=== PATIENT | male | born 1955 | race Caucasian/White ===

== ENCOUNTER 2021-12-01 05:07 | Emergency (ER) | payer OTHER ==
[2021-12-01] MEDS ORDERED: MORPHINE 4 MG/ML SYR ONE (05:44)
[2021-12-01 06:04] LABS: Absolute Lymphocytes (CBC) 1.8 K/uL (0.7-4.9); Hematocrit 41.5 % (39.6-49.0); Lymphocytes % 19.3 % (15.3-44.8); MCV 88.9 fL (80-100); MPV 8.2 fL (7.6-11.3); RBC Red Blood Cell Count 4.67 M/uL (4.33-5.43)
[2021-12-01 06:14] LABS: Albumin 3.4 g/dL (3.4-5.0); Bilirubin Total 0.3 mg/dL (0.2-1.0); Potassium 4.1 mmol/L (3.5-5.1); Protein, Total 7.8 g/dL (6.4-8.2)
[2021-12-01 06:28] LABS: Protime INR 0.98
--- NOTE | 2021-12-01 06:32 | ER ---
Nurse's Notes [facility] Name: Zachary Driscoll Age: 66 yrs Sex: Male : 1955 Arrival Date: 12/01/2021 Time: 05:19 Bed 3 Private MD: Diagnosis: Laceration without foreign body of left hand, initial encounter-With arterial bleeding and muscle involvement Presentation: 12/01 05:20 Chief complaint: Patient states: Large laceration to left hand from sheet metal. lp1 Coronavirus screen: At this time, the client does not indicate any symptoms associated with coronavirus-19. Ebola Screen: No symptoms or risks identified at this time. Complicating Factors: There are no complicating factors for this patient. Initial Sepsis Screen: Does the patient meet any 2 criteria? No. Patient's initial sepsis screen is negative. Does the patient have a suspected source of infection? No. Patient's initial sepsis screen is negative. Risk Assessment: Do you want to hurt yourself or someone else? Patient reports no desire to harm self or others. Onset of symptoms was December 01, 2021. 05:20 Method Of Arrival: Wheelchair lp1 05:20 Care prior to arrival: None. Mechanism of Injury: Laceration sustained while working, lp1 from Sheet Metal. Trauma event details: Injury occurred in the [facility], Injury occurred: at home. Injury occurred: November 30, 2021 Injury occurred at: 19:00. 05:26 Acuity: VERNON 1 kd3 Triage Assessment: 05:20 General: Appears distressed, Behavior is restless. Pain: Complains of pain in left hand lp1 Pain currently is 10 out of 10 on a pain scale. Noted to be grimacing, guarding, restless. Neuro: Level of Consciousness is awake, alert, obeys commands. Respiratory: Respiratory effort is even, unlabored. Derm: Wound noted left hand. Musculoskeletal: Range of motion: limited in left wrist. 05:20 Injury Description: Laceration sustained to palmar aspect of proximal phalanx of left lp1 little finger, palmar aspect of proximal phalanx of left ring finger and inner aspect of left palm is jagged, > 20 cm long, bleeding profusely. Trauma Activation: Physician: ED Physician; Name: leo; Notified At: ; Arrived At: Physician: General Surgeon; Name: ; Notified At: ; Arrived At: Physician: Radiology; Name: ; Notified At: ; Arrived At: Physician: Respiratory; Name: ; Notified At: ; Arrived At: Physician: Lab; Name: ; Notified At: ; Arrived At: Historical: - Allergies: 05:45 No Known Allergies; kd3 - Home Meds: 05:45 hydrocodone [Active]; kd3 - PMHx: 05:45 None; kd3 - PSHx: 05:45 Rotator Cuff repair; kd3 - Immunization history:: Adult Immunizations up to date. - Social history:: Smoking status: Patient reports the use of cigarette tobacco products, smokes one pack cigarettes per day. - Immunization history: Last tetanus immunization: unknown. - Family history:: not pertinent. - Hospitalizations: : No recent hospitalization is reported. Screenin:57 Abuse screen: Denies threats or abuse. Denies injuries from another. Nutritional lp1 screening: No deficits noted. Tuberculosis screening: No symptoms or risk factors identified. Fall Risk None identified. Primary Survey: 05:20 Uncontrolled hemorrhage is observed, assessment has been re-ordered to <C> ABC. A: The lp1 client is awake and alert. The airway is patent. Breathing/Chest: Respiratory effort: spontaneous, unlabored, Respiratory pattern: regular. Circulation: Hemorrhage: External hemorrhage noted. Large laceration with active bleeding to left hand Skin color: pale. Disability Client is alert. Exposure/Environment: There is evidence of uncontrolled external hemorrhage. Provider notified immediately. Methods to control bleeding applied. 07:18 Reassessment Breathing: Spontaneous respiratory effort, equal unlabored respirations, kd3 breath sounds clear bilaterally, regular pattern with symmetrical chest rise and fall. 07:19 Reassessment Alertness and Airway: Awake and alert. The airway is patent. kd3 Secondary Survey: 07:19 HEENT: No deficits noted. Gastrointestinal: No deficits noted. : No deficits noted. kd3 Musculoskeletal: No deficits noted. Injury Description: Laceration sustained to inner aspect of left palm and palmar aspect of proximal phalanx of left ring finger and palmar aspect of proximal phalanx of left little finger. Assessment: 05:20 Reassessment: Dr. Ricardo at bedside for suture repair; Tourniquet applied to left arm. lp1 Vital Signs: 05:20 BP 100 / 78; Pulse 92; Resp 20; Temp 98(TE); Pulse Ox 100% on R/A; Weight 90.72 kg (R); lp1 Height 6 ft. 2 in. (187.96 cm); Pain 10/10; 07:19 BP 112 / 82; Pulse 91; Resp 16; Pulse Ox 100% on R/A; kd3 05:20 Body Mass Index 25.68 (90.72 kg, 187.96 cm) lp1 Ken Coma Score: 05:20 Eye Response: spontaneous(4). Verbal Response: oriented(5). Motor Response: obeys lp1 commands(6). Total: 15. Trauma Score (Adult): 05:20 Eye Response: spontaneous(1); Verbal Response: oriented(1); Motor Response: obeys lp1 commands(2); Systolic BP: > 89 mm Hg(4); Respiratory Rate: 10 to 29 per min(4); Andreas Score: 15; Trauma Score: 12 ED Course: 05:15 Arm band placed on right wrist. lp1 05:19 Patient arrived in ED. mw2 05:20 Hiram Ricardo MD is Attending Physician. rn 05:20 Inserted saline lock: 18 gauge in right forearm, using aseptic technique. lp1 05:26 Triage completed. kd3 05:30 Patient has correct armband on for positive identification. Bed in low position. lp1 05:30 Patient maintains SpO2 saturation greater than 95% on room air. lp1 06:11 initiated a transfer with Anabella Montague from [facility]. mw2 06:[address] Ricardo with the Hand Surgeon from [facility]. mw2 06:21 administrative approval given by Anabella Montague/ patient has been accepted to [address] to the ER/ Dr. Soto accepted the patient in transfer/report to be called to [phone]. 06:26 Adriana Hopson, RADHA is Primary Nurse. kd3 07:15 No provider procedures requiring assistance completed. Inserted saline lock: 20 gauge kd3 in right hand, using aseptic technique. 07:18 Patient transferred, IV remains in place. kd3 07:19 Thermoregulation: warm blanket given to patient. kd3 Administered Medications: 05:27 Drug: Lidocaine (1 %) 1 vials Volume: 20 ml; Route: Infiltration; kd3 07:20 Follow up: Response: No adverse reaction kd3 05:38 Drug: morphine 4 mg Route: IVP; Infused Over: 4 mins; Site: right forearm; kd3 06:43 Follow up: Response: No adverse reaction lp1 07:20 Follow up: Response: No adverse reaction kd3 06:43 Drug: Ancef (cefazolin) 1 grams Route: IVPB; Site: right forearm; lp1 07:12 Follow up: Response: No adverse reaction; IV Status: Completed infusion kd3 07:20 Follow up: Response: No adverse reaction kd3 07:11 Drug: fentaNYL (PF) 50 mcg Route: IVP; Site: right hand; kd3 07:20 Follow up: Response: No adverse reaction kd3 07:13 Drug: Tetanus Toxoid,Adsorbed 0.5 ml {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 Exp: 08/20/2023. Lot kd3 #: [id number]. } Route: IM; Site: right deltoid; 07:20 Follow up: Response: No adverse reaction kd3 Medication: 05:51 VIS not applicable for this client. lp1 Intake: 07:18 PO: 0ml; Total: 0ml. kd3 Outcome: 06:31 ER care complete, transfer ordered by . rn 07:18 Transferred by ground EMS to [facility]. kd3 07:18 Condition: stable 07:18 Patient's length of stay was not longer than 2 hours. 07:20 Patient left the ED. kd3 Signatures: Hiram Ricardo MD MD rn Pena, Laura, RN RN lp1 Kat Christian 2 Adriana Hopson RN RN kd3 Corrections: (The following items were deleted from the chart) 05:46 05:45 Home Meds: None; kd3 kd3 05:58 05:20 Chief complaint: Patient states: Large laceration to right hand from sheet metal lp1 lp1 06:11 05:20 BP 100 / 78; Pulse 92bpm; Resp 20bpm; Pulse Ox 100% RA; 90.72 kg Reported; Height lp1 6 ft. 2 in.; BMI: 25.6; Pain 10/10; lp1
--- NOTE | 2021-12-01 06:32 | EDPHYS ---
Physician Documentation [facility] Name: Zachary Driscoll Age: 66 yrs Sex: Male : 1955 Arrival Date: 12/01/2021 Time: 05:19 Bed 3 Private MD: ED Physician Hiram Ricardo HPI: 12/01 06:24 This 66 yrs old Male presents to ER via Wheelchair with complaints of Laceration To rn Hand. 06:24 The patient has a laceration related to: construction occurred outdoors. The rn laceration(s) is(are) located on the 4th/5th webspace left hand. Onset: The symptoms/episode began/occurred 10 hour(s) ago. Associated signs and symptoms: Pertinent positives: heavy bleeding, Pertinent negatives: loss of consciousness. The patient has not experienced similar symptoms in the past. The patient has not recently seen a physician. Pt reports working with sheet metal last night, slid off roof, sheet metal caught left hand between 4th/5th digits, packed it with toilet paper and stopped bleeding, went to sleep and woke up with blood "all around". Denies syncope. No sob. No anticoagulants. . Historical: - Allergies: 05:45 No Known Allergies; kd3 - Home Meds: 05:45 hydrocodone [Active]; kd3 - PMHx: 05:45 None; kd3 - PSHx: 05:45 Rotator Cuff repair; kd3 - Immunization history:: Adult Immunizations up to date. - Social history:: Smoking status: Patient reports the use of cigarette tobacco products, smokes one pack cigarettes per day. - Immunization history: Last tetanus immunization: unknown. - Family history:: not pertinent. - Hospitalizations: : No recent hospitalization is reported. ROS: 06:24 Constitutional: Negative for fever, chills, and weight loss, Cardiovascular: Negative rn for chest pain, palpitations, and edema, Respiratory: Negative for shortness of breath, cough, wheezing, and pleuritic chest pain, MS/Extremity: + laceration to left hand Neuro: + tingling to left hand, 4th/5th digits Exam: 06:24 Constitutional: This is a well developed, well nourished patient who is awake, alert, rn holding left hand in bag MS/ Extremity: Pulses equal, no cyanosis. UNable to fully flex left 4th/5th digits, approx 5cm deep laceration from webspace between 4th/5th digits that extends toward palm. No foreign body. + 2 locations of arteriole bleeding. + muscle belly exposed and transected Neuro: Decreased sensation to tips of 4th/5th digits of left hand Vital Signs: 05:20 BP 100 / 78; Pulse 92; Resp 20; Temp 98(TE); Pulse Ox 100% on R/A; Weight 90.72 kg (R); lp1 Height 6 ft. 2 in. (187.96 cm); Pain 10/10; 07:19 BP 112 / 82; Pulse 91; Resp 16; Pulse Ox 100% on R/A; kd3 05:20 Body Mass Index 25.68 (90.72 kg, 187.96 cm) lp1 Ken Coma Score: 05:20 Eye Response: spontaneous(4). Verbal Response: oriented(5). Motor Response: obeys lp1 commands(6). Total: 15. Trauma Score (Adult): 05:20 Eye Response: spontaneous(1); Verbal Response: oriented(1); Motor Response: obeys lp1 commands(2); Systolic BP: > 89 mm Hg(4); Respiratory Rate: 10 to 29 per min(4); Ken Score: 15; Trauma Score: 12 Laceration: 06:24 Wound Repair of 5cm ( 2.0in ) muscle penetrating laceration to palmar aspect of rn proximal phalanx of left ring finger. Distal neuro/vascular/tendon intact. Anesthesia: Wound infiltrated with 3 mls of 1% lidocaine. Wound prep: Simple cleansing by nurse. Skin closed with 3 4-0 Vicryl using [id number] sutures. Dressed with Kerlix. Patient tolerated well. MDM: 06:08 Patient medically screened. rn 06:08 ED course: 3 mzwzzl-vi-dvrzr sutures placed, hemostasis achieved. . rn 06:24 Differential diagnosis: superficial laceration, tendon injury, vascular injury. Data rn reviewed: vital signs, nurses notes, lab test result(s), and as a result, I will admit patient. ED course: Arterial bleeding stopped, holding pressure with successful control of bleeding, accepted for transfer to [facility] for deep laceration and unable to flex 4th/5th digits.. 12/01 05:35 Order name: CBC with Diff; Complete Time: 06:08 kd3 12/01 05:35 Order name: CMP; Complete Time: 06:19 kd3 12/01 05:35 Order name: PT-INR kd3 12/01 06:14 Order name: COVID-19 SARS RT PCR (Document "Date of Onset" if Symptomatic) lp1 12/01 05:27 Order name: Dressing - Wound; Complete Time: 07:15 kd3 12/01 05:27 Order name: Gloves, Sterile; Complete Time: 06:00 kd3 12/01 05:27 Order name: Setup Suture Tray; Complete Time: 06:00 kd3 Administered Medications: 05:27 Drug: Lidocaine (1 %) 1 vials Volume: 20 ml; Route: Infiltration; kd3 07:20 Follow up: Response: No adverse reaction kd3 05:38 Drug: morphine 4 mg Route: IVP; Infused Over: 4 mins; Site: right forearm; kd3 06:43 Follow up: Response: No adverse reaction lp1 07:20 Follow up: Response: No adverse reaction kd3 06:43 Drug: Ancef (cefazolin) 1 grams Route: IVPB; Site: right forearm; lp1 07:12 Follow up: Response: No adverse reaction; IV Status: Completed infusion kd3 07:20 Follow up: Response: No adverse reaction kd3 07:11 Drug: fentaNYL (PF) 50 mcg Route: IVP; Site: right hand; kd3 07:20 Follow up: Response: No adverse reaction kd3 07:13 Drug: Tetanus Toxoid,Adsorbed 0.5 ml {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 Exp: 08/20/2023. Lot kd3 #: [id number]. } Route: IM; Site: right deltoid; 07:20 Follow up: Response: No adverse reaction kd3 Disposition Summary: 12/01/21 06:31 Transfer Ordered Transfer Location: [facility] rn Reason: Higher level of care rn Condition: Stable rn Problem: new rn Symptoms: have improved rn Accepting Physician: Dr. Soto(12/01/21 07:20) kd3 Diagnosis - Laceration without foreign body of left hand, initial encounter - With arterial rn bleeding and muscle involvement Discharge Instructions: - Discharge Summary Sheet kd3 Forms: - Medication Reconciliation Form rn - SBAR form kd3 Signatures: Dispatcher [employer] Hiram Fam MD MD rn Patito Steel RN RN lp1 Adriana Hopson RN RN kd3 Corrections: (The following items were deleted from the chart) 05:46 05:45 Home Meds: None; kd3 kd3 07:20 06:31 Dr. Soto rn kd3
[2021-12-01] MEDS ORDERED: NA CHLORIDE 0.9% 100 ML ONE (06:47)
[2021-12-01] MEDS ORDERED: CEFAZOLIN SODIUM 1 GM/VIAL ONE (06:47)
[2021-12-01] MEDS ORDERED: FENTANYL CITR 100 MCG/2 ML ONE (07:10)
[2021-12-01] MEDS ORDERED: TETANUS & DIPHTHERIA TOX,ADULT 0.5 ML VIAL ONE (07:10)
[2021-12-01 07:26] VITALS: TEMP 98; O2SAT 100
[2021-12-01 07:27] VITALS: BP 112/82
== END 2021-12-01 07:20 | disposition short-term general hospital (02) ==
LOC: ER 05:07
PROC: 0JQK0ZZ Repair Left Hand Subcutaneous Tissue and Fascia, Open Approach (ICD-10-PCS; principal; 2021-12-01)
DX: S66.922A Laceration of unspecified muscle, fascia and tendon at wrist and hand level, left hand, initial encounter (principal); S65.912A Laceration of unspecified blood vessel at wrist and hand level of left arm, initial encounter; Z20.822 Contact with and (suspected) exposure to COVID-19; Z23 Encounter for immunization
CPT/HCPCS: 85025; 36415; 85610; 80053; 90714; 12002; U0003; J3010; J0690

== ENCOUNTER 2024-01-02 10:10 | Emergency (ER) | payer MEDICARE, OTHER ==
--- OUTSIDE RECORDS SUMMARY | 2024-01-02 10:13 | XMS REPORT | Continuity of Care Document ---
Author Name Unknown Address [address] [place] [address] [facility]connect Address [address] [place] [address] Care Team Providers Care Financial Operations Analyst Name Role Phone BART ULLOA Primary Care Physician Lucas Smith DO Attending Clinician LUCAS MORTON Attending Clinician Unavailable VI CARRINGTON Attending Clinician Unavailable Vi Carrington PA-C Attending Clinician GREGORY GILBERT Attending Clinician UnavailGregory Flowers MD Attending Clinician LUCAS MORTON Admitting Clinician Unavailable VI CARRINGTON Admitting Clinician Unavailable Payers Payer Name Policy Type Policy Number Effective Date Expirati on Date Source MEDICARE PART A AND B [id number] 2018 00:00:00 MEDICARE PART A \T\ B [id number] 2018 00:00:00 COMMERCIAL NON-CONTRACT GENERIC [id number] 2020 00:00:00 Problems Condition Name Condition Details Condition Category Status Onset Date Resolution Date Last Treatment Date Treating Clinician Comments Source Dysphagia Dysphagia Disease Active 06-03 00:00: 00 [facility] Food impaction of esophagus Food impaction of esophagus Disease Active 06-03 00:00: 00 [facility] Back pain, chronic Back pain, chronic Disease Active 06-03 00:00: 00 [facility] Muscle spasm Muscle spasm Disease Active 06-03 00:00: 00 [facility] Allergies, Adverse Reactions, Alerts Allergy Name Allergy Type Status Severity Reaction(s) Onset Date Inactive Date Treating Clinician Comments Source NO KNOWN ALLERGIE S Drug Class Active [facility] Social History Social Habit Start Date Stop Date Quantity Comments Source Exposure to SARS-CoV-2 (event) Not sure [facility] Gender identity [facility] History of Social function 2021-04-04 00:00:00 2021-04-04 00:00:00 [facility] Alcohol intake 2021-04-04 00:00:00 2021-04-04 00:00:00 Lifetime non-drinker (finding) [facility] Tobacco use and exposure 2021-03-31 00:00:00 2021-03-31 00:00:00 Smokeless tobacco non-user [facility] Sex Assigned At 1955 00:00:00 1955 00:00:00 [facility] Smoking Status Start Date Stop Date Source Never smoked tobacco [facility] Medications Ordered Medication Name Filled Medication Name Start Date Stop Date Current Medication? Ordering Clinician Indication Dosage Frequency Signature (SIG) Comments Components Source HYDROcodone -acetaminop hen (NORCO) 10-325 mg tablet 1 tablet 12-14 18:00: 00 12-14 17:15 :00 No [id number] 1{tbl} 1 tablet, Oral, ONCE, 1 dose, On Sun12/14/22 at 1300, Routine [facility] methylPREDN ISolone (MEDROL, RAQUEL,) 4 mg tablets 12-14 00:00: 00 Yes [id number] Take by mouth SEE-INSTRU CTIONS. follow package directions [facility] methocarbam oL 500 mg tablet 12-14 00:00: 00 12-20 04:59 :00 No [id number] 500mg Take 1 tablet by mouth in the morning and 1 tablet at noon and 1 tablet in the evening. Do all this for 5 days. [facility] lidocaine 5 % (700 mg/patch) patch 12-14 00:00: 00 12-15 04:59 :00 No [id number] 1{patch } Apply 1 Patch to area(s) once now for 1 dose. [facility] clindamycin 150 mg capsule 2020-05 00:00: 00 Yes [id number] 300mg Take 2 capsules by mouth 3 (three) times daily. [facility] HYDROcodone -acetaminop hen 5-325 mg tablet 2020-05 00:00: 00 Yes [facility] sulfamethox azole-trime thoprim 800-160 mg per tablet 2020-05 00:00: 00 Yes [facility] CARISOPRODO L (SOMA ORAL) 06-04 15:44: 03 Yes Take by mouth. [facility] HYDROcodone -acetaminop hen (NORCO) 10-325 mg tablet 06-04 15:44: 03 Yes 1{tbl} Take 1 Tab by mouth every 6 (six) hours as needed. [facility] gabapentin (NEURONTIN) 300 mg capsule 06-04 15:44: 03 Yes 300mg Take 300 mg by mouth 3 (three) times daily. [facility] pantoprazol e (PROTONIX) 40 mg EC tablet 06-04 00:00: 00 Yes 40mg Take 1 Tab by mouth 2 (two) times daily. [facility] maalox/diph enhydrAMINE :lidocaine2 % viscous 1:1:1 (COMPOUNDED ) Susp suspension 06-04 00:00: 00 Yes 10mL Take 10 mL by mouth as needed for Nausea and Vomiting (N/V) or Indigestio n. [facility] Vital Signs Vital Name Observation Time Observation Value Comments S tory Systolic blood pressure 2022-12-14 18:37:42 157 mm[Hg] [facility] Diastolic blood pressure 2022-12-14 18:37:42 93 mm[Hg] [facility] Heart rate 2022-12-14 18:37:42 76 /min [facility] Respiratory rate 2022-12-14 18:37:42 18 /min [facility] Oxygen saturation in Arterial blood by Pulse oximetry 2022-12-14 18:37:42 99 /min [facility] Body temperature 2022-12-14 15:22:00 36.67 Lexis [facility] Body height 2022-12-14 15:22:00 188 cm [facility] Body weight 2022-12-14 15:22:00 89.359 kg [facility] BMI 2022-12-14 15:22:00 25.29 kg/m2 [facility] Systolic blood pressure 2021-03-31 14:50:00 162 mm[Hg] [facility] Diastolic blood pressure 2021-03-31 14:50:00 97 mm[Hg] [facility] Heart rate 2021-03-31 14:50:00 94 /min [facility] Body height 2021-03-31 14:48:00 188 cm [facility] Body weight 2021-03-31 14:48:00 86.183 kg [facility] BMI 2021-03-31 14:48:00 24.39 kg/m2 [facility] Procedures Procedure Date / Time Performed Performing Clinicia n Source XR RIBS 4+ VW LEFT 2022-12-14 15:50:39 Lucas Morton [facility] CONSENT/REFUSAL FOR DIAGNOSIS AND TREATMENT 2022-12-14 15:14:26 Doctor Unassigned, [employer] [facility] XR LUMBAR SPINE 1 VW 2022-02-20 15:57:43 Vi Carrington [facility] Encounters Start Date/Time End Date/Time Encounter Type Admission Type Attending Clinicians Care Facility Care Department Encounter ID Source 2022 10:10:19 Outpatient [facility] [id number] [facility] 2021-12-14 11:18:22 Outpatient [facility] [id number] [facility] 2022-12-14 10:25:00 2022-12-14 13:41:00 Emergency Lucas Morton [facility] [id number] [facility] 2022-12-14 10:25:00 2022-12-14 13:41:00 Emergency X LUCAS MORTON [facility] ERT [id number] [facility] 2022-02-20 10:03:52 2022-02-20 23:59:00 [facility] [id number] 2022-02-20 10:03:52 2022-02-20 23:59:00 Hospital Encounter Z[facility] [id number] [facility] 2021-03-31 09:45:00 2021-03-31 10:14:28 Outpatient R GREGORY GILBERT [facility] [id number] [facility] 2021-03-31 09:24:38 2021-03-31 10:14:28 Office Visit Gregory Gilbert [facility] [id number] [facility] Notes Date/Time Note Provider Source 2022-12-14 13:40:34 Formatting of this n ote might be different from the original. Pt given printed and verbal discharge instructions regarding rib pain, encouraged hydration. Prescriptions provided Pt verbalized understanding of instructions, pt awake alert oriented, resp reg unlabored, skin w/d, color appropriate for race, moves all ext well,pt encouraged to follow up with pcp. Advised to seek medical attention for new/prolonged/worsening of symptoms. No adverse reaction to meds given in ER noted upon discharge. Awake, alert oriented, resp reg unlabored, skin w/d, pt leaving amb with steady gait, in no apparent distress. Hilario Dunaway RN [facility] 2022-12-14 10:22:05 Formatting of this n ote might be different from the original. Last night around midnight pt was took his dog outside. Shoelaces were long and he tripped over them. Hit left side ribs on concrete corner. Terra Woodard RN [facility]
[2024-01-02 10:39] LABS: Absolute Basophils 0.1 K/uL (0-0.5); Absolute Eosinophils 0.2 K/uL (0-0.5); Absolute Lymphocytes (CBC) 1.4 K/uL (0.7-4.9); Absolute Monocytes 0.6 K/uL (0.1-1.3); Basophils % 1.2 % (0-1.3); Eosinophils % 2.4 % (0-4.4); Hematocrit 35.7 % (39.6-49.0); Lymphocytes % 18.9 % (15.3-44.8); MCH 30.4 pg (27.0-35.0); MCHC 33.6 g/dL (32.0-36.0); MCV 90.5 fL (80-100); MPV 8.9 fL (7.6-11.3); Monocytes % 8.7 % (3.3-12.3); Neutrophils % 68.8 % (41.7-73.7); Platelets 204 thou/uL (152-406); RBC Red Blood Cell Count 3.94 M/uL (4.33-5.43); Red Cell Distribution Width 14.4 % (12.1-15.2)
--- NOTE | 2024-01-02 10:39 | RAD REPORT ---
EXAM DESCRIPTION: CT - CTHCSPWOC - 01/02/2024 10:22 am CLINICAL HISTORY: Trauma, head and neck injury. head injury, slurred speech COMPARISON: CT HEAD CSPINE MPR WO CONTRAST dated 08/31/2013 TECHNIQUE: Axial 5 mm thick images of the head were obtained. Axial 2 mm thick images of the cervical spine were obtained with sagittal and coronal reconstruction images generated and reviewed. All CT scans are performed using dose optimization technique as appropriate and may include automated exposure control or mA/KV adjustment according to patient size. FINDINGS: CT HEAD WITHOUT CONTRAST: No acute hemorrhage, hydrocephalus or extra-axial collection is identified.Mild generalized brain atr ophy is present with mild periventricular and deep white matter chronic microvascular ischemic change s.No areas of brain edema or midline shift. The paranasal sinuses and mastoids are clear.The calvarium is intact. CT CERVICAL SPINE WITHOUT CONTRAST: No fracture or subluxation.Moderate lower cervical degenerative changes.No prevertebral soft tissues swelling is identified. IMPRESSION: No acute intracranial or cervical spine findings.
[2024-01-02 10:54] LABS: PT Prothrombin Time 11.7 SECONDS (9.4-12.5); PTT, Activated Partial Thromb 31.3 SECONDS (24.3-36.9); Protime INR 1.05
[2024-01-02 10:57] LABS: Anion Gap 8.7 mEq/L (5.0-15.0); Potassium 4.7 mEq/L (3.5-5.1)
--- NOTE | 2024-01-02 13:51 | ER ---
Nurse's Notes [facility] Name: Zachary Driscoll Age: 68 yrs Sex: Male : 1955 Arrival Date: 01/02/2024 Time: 10:10 Bed 2 Private MD: Diagnosis: Unspecified injury of head, initial encounter;Concussion without loss of consciousness Presentation: 01/01 10:12 Chief complaint: EMS states: toned out to patient home for limb falling on head 1 day ld1 ago, pt reports negative LOC. Open wound to top of pt head. EMS reports slurred speech and unsteady gait. Coronavirus screen: At this time, the client does not indicate any symptoms associated with coronavirus-19. Ebola Screen: No symptoms or risks identified at this time. Risk Assessment: Do you want to hurt yourself or someone else? Patient reports no desire to harm self or others. Onset of symptoms was January 02, 2024. 10:12 Method Of Arrival: [facility] [place]1 10:12 Acuity: VERNON 2 ld1 14:23 Initial Sepsis Screen: Does the patient meet any 2 criteria? No. Patient's initial ar6 sepsis screen is negative. 14:23 Initial Sepsis Screen: Does the patient have a suspected source of infection? No. ar6 Patient's initial sepsis screen is negative. Triage Assessment: 10:12 General: Appears in no apparent distress. comfortable, Behavior is calm, cooperative, ld1 appropriate for age. Pain: Complains of pain in scalp Pain does not radiate. Pain currently is 8 out of 10 on a pain scale. Quality of pain is described as throbbing, Pain began suddenly. EENT: No signs and/or symptoms were reported regarding the EENT system. 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 Gait is unsteady, Speech is slurred. Cardiovascular: Capillary refill < 3 seconds Patient's skin is warm and dry. Respiratory: Airway is patent Respiratory effort is even, unlabored. GI: Abdomen is flat, non-distended. : No signs and/or symptoms were reported regarding the genitourinary system. Derm: No signs and/or symptoms reported regarding the dermatologic system. Musculoskeletal: No signs and/or symptoms reported regarding the musculoskeletal system. Historical: - Allergies: 10:12 Codeine; ld1 - PMHx: 10:12 HEPATITIS C (Rotator cuff repair); ld1 - PSHx: 10:12 Rotator cuff repair; ld1 - Immunization history:: Adult Immunizations up to date. - Infectious Disease History:: Denies. - Social history:: Smoking status: Patient reports the use of cigarette tobacco products, smokes one-half pack cigarettes per day. - Family history:: not pertinent. - Hospitalizations: : No recent hospitalization is reported. Screenin:15 [facility] ED Fall Risk Assessment (Adult) History of falling in the last 3 months, ld1 including since admission No falls in past 3 months (0 pts) Confusion or Disorientation Yes (5 pts) Intoxicated or Sedated No (0 pts) Impaired Gait Yes (1 pt) Mobility Assist Device Used No (0 pt) Altered Elimination No (0 pt) Score/Fall Risk Level 3 or more points = High Risk Oriented to surroundings, Maintained a safe environment, Educated pt \T\ family on fall prevention, incl call for assistance when getting out of bed, Assessed \T\ reinforced patient's understanding of fall precautions, Provided non-skid footwear, Hourly rounding (assess needs \T\ fall precautionary measures) done, Used ambulatory aids as needed (educated on \T\ assisted with), Used gait belt as appropriate Implemented a Fall Risk Plan of Care, Apply high fall risk patient identification: yellow non skid footwear/ fall signage, Placed fall mat w/ non beveled edge next to bed, Activated bed/chair alarm, Remained w/in arm's length of patient and in sight while toileting, Offered frequent toileting (1:1 observation), Remained with patient while ambulating, Utilized family, sitter, or virtual court orderly as indicated. Abuse screen: Denies threats or abuse. Denies injuries from another. Nutritional screening: No deficits noted. Tuberculosis screening: No symptoms or risk factors identified. Assessment: 10:15 Reassessment: See triage assessment. Pt arrived with C collar in place. Pt to CT at ld1 this time. 11:00 Reassessment: Patient appears in no apparent distress at this time. No changes from ld1 previously documented assessment. 12:00 Reassessment: Patient appears in no apparent distress at this time. No changes from ld1 previously documented assessment. Patient is alert, oriented x 3, equal unlabored respirations, skin warm/dry/pink. 12:55 Reassessment: Patient appears in no apparent distress at this time. No changes from ld1 previously documented assessment. Patient and/or family updated on plan of care and expected duration. Pain level reassessed. Patient is alert, oriented x 3, equal unlabored respirations, skin warm/dry/pink. Vital Signs: 10:54 BP 145 / 89; Pulse 67; Resp 14; Temp 98.2(TE); Pulse Ox 98% on R/A; Height 5 ft. 11 in. ld1 ; Pain 8/10; 11:35 BP 129 / 81; Pulse 58; Resp 18; Pulse Ox 98% on R/A; ld1 12:55 BP 147 / 82; Pulse 56; Resp 17; Pulse Ox 100% on R/A; ld1 14:22 BP 130 / 72; Pulse 69; Resp 18; Pulse Ox 99% on R/A; ar6 10:54 Pain Scale: Adult ld1 [place] Coma Score: 11:22 Eye Response: spontaneous(4). Motor Response: obeys commands(6). Verbal Response: rn oriented(5). Total: 15. 13:44 Eye Response: spontaneous(4). Motor Response: obeys commands(6). Verbal Response: rn oriented(5). Total: 15. ED Course: 10:11 Patient arrived in ED. rn 10:11 Hiram Ricrado MD is Attending Physician. rn 10:12 Lore Rowe, RADHA is Primary Nurse. ld1 10:12 Arm band placed on right wrist. ld1 10:15 Patient has correct armband on for positive identification. Placed in gown. Bed in low ld1 position. Call light in reach. Side rails up X2. electronic device monitor on. Pulse ox on. NIBP on. Door closed. Noise minimized. Warm blanket given. 10:15 No provider procedures requiring assistance completed. Maintain EMS IV. Dressing ld1 intact. Good blood return noted. Site clean \T\ dry. Gauge \T\ site: 18G LAC. 10:16 Triage completed. ld1 10:24 CT Head C Spine In Process Unspecified. EDMS 10:28 CBC with Diff Sent. ld1 10:28 Basic Metabolic Panel Sent. ld1 10:28 Ptt, Activated Sent. ld1 10:29 Protime (+inr) Sent. ld1 14:23 Provided Education on: f/u care. ar6 14:23 IV discontinued, intact, bleeding controlled, No redness/swelling at site. Pressure ar6 dressing applied. Administered Medications: No medications were administered Medication: 14:23 VIS not applicable for this client. ar6 Outcome: 13:49 Discharge ordered by . rn 14:22 Discharged to home ambulatory, ar6 14:22 Condition: good 14:22 Discharge instructions given to patient, Instructed on discharge instructions, follow up and referral plans. Demonstrated understanding of instructions, follow-up care, Prescriptions given X 14:24 Patient left the ED. ar6 Signatures: Dispatcher [employer] EDHiram Morris MD MD rn Sims, Lauren RN RN ld1 Elle Bernard RN RN ar6
--- NOTE | 2024-01-02 13:51 | EDPHYS ---
Physician Documentation [facility] Name: Zachary Driscoll Age: 68 yrs Sex: Male : 1955 Arrival Date: 01/02/2024 Time: 10:10 Bed 2 Private MD: ED Physician Hiram Ricardo HPI: 01/01 11:22 This 68 yrs old Male presents to ER via EMS with complaints of Head Injury-Adult. rn 11:22 The patient or guardian reports injury, pain. The complaints affect the left side of rn the back of head. Onset: The symptoms/episode began/occurred 2 day(s) ago. Associated signs and symptoms: Loss of consciousness: This patient did not experience any loss of consciousness. Pertinent positives: headache, Pertinent negatives: the patient has not experienced a loss of conciousness, neck pain, seizure, shortness of breath, vomiting, weakness in extremities. Severity of symptoms: At their worst the symptoms were mild, in the emergency department the symptoms are unchanged. The patient has not experienced similar symptoms in the past. Patient was working outside and had 8 inch diameter tree limb fall on head 2 days ago. No LOC. Was not wearing head protection. Sustained small laceration to the area but was not seen or taken care of prior to this visit. No blood thinners. Patient took hydrocodone 10 mg this morning prior to coming in. Patient was ambulatory for EMS and did not require assistance.. Historical: - Allergies: 10:12 Codeine; ld1 - PMHx: 10:12 HEPATITIS C (Rotator cuff repair); ld1 - PSHx: 10:12 Rotator cuff repair; ld1 - Immunization history:: Adult Immunizations up to date. - Infectious Disease History:: Denies. - Social history:: Smoking status: Patient reports the use of cigarette tobacco products, smokes one-half pack cigarettes per day. - Family history:: not pertinent. - Hospitalizations: : No recent hospitalization is reported. ROS: 11:22 Constitutional: Negative for fever, chills, and weight loss, Eyes: Negative for injury, rn pain, redness, and discharge, Neck: Negative for injury, pain, and swelling, Cardiovascular: Negative for chest pain, palpitations, and edema, Respiratory: Negative for shortness of breath, cough, wheezing, and pleuritic chest pain, Abdomen/GI: Negative for abdominal pain, nausea, vomiting, diarrhea, and constipation, Back: Negative for injury and pain, MS/Extremity: Negative for injury and deformity, Skin: Positive for healing laceration to the scalp Neuro: Positive for headache Exam: 11:22 Constitutional: This is a well developed, well nourished patient who is awake, alert, rn and in no acute distress. Head/Face: Normocephalic, 3 cm superficial healing laceration without active bleeding. Small hematoma. No crepitus. No depression. Eyes: Pupils equal round and reactive to light, extra-ocular motions intact. Neck: No midline cervical tenderness Chest/axilla: Normal chest wall appearance and motion. Nontender with no deformity. Cardiovascular: Regular rate and rhythm. No pulse deficits. Respiratory: No increased work of breathing, no retractions or nasal flaring. Abdomen/GI: Soft, non-tender MS/ Extremity: Pulses equal, no cyanosis. Neurovascular intact. Full, normal range of motion. Equal circumference. Neuro: Awake and alert, GCS 15, oriented to person, place, time, and situation. Cranial nerves II-XII grossly intact. Motor strength 5/5 in all extremities. Sensory grossly intact. Vital Signs: 10:54 BP 145 / 89; Pulse 67; Resp 14; Temp 98.2(TE); Pulse Ox 98% on R/A; Height 5 ft. 11 in. ld1 ; Pain 8/10; 11:35 BP 129 / 81; Pulse 58; Resp 18; Pulse Ox 98% on R/A; ld1 12:55 BP 147 / 82; Pulse 56; Resp 17; Pulse Ox 100% on R/A; ld1 14:22 BP 130 / 72; Pulse 69; Resp 18; Pulse Ox 99% on R/A; ar6 10:54 Pain Scale: Adult ld1 [place] Coma Score: 11:22 Eye Response: spontaneous(4). Motor Response: obeys commands(6). Verbal Response: rn oriented(5). Total: 15. 13:44 Eye Response: spontaneous(4). Motor Response: obeys commands(6). Verbal Response: rn oriented(5). Total: 15. MDM: 10:11 Patient medically screened. rn 13:44 Differential diagnosis: Contusion of Hematoma on Intracranial bleed- Concussion rn cerebral contusion. Data reviewed: vital signs, nurses notes, lab test result(s), radiologic studies, CT scan, and as a result, I will discharge patient. Counseling: I had a detailed discussion with the patient and/or guardian regarding the historical points, exam findings, and any diagnostic results supporting the discharge/admit diagnosis, lab results, radiology results, the need for outpatient follow up, to return to the emergency department if symptoms worsen or persist or if there are any questions or concerns that arise at home. Special discussion: Based on the patient's history, exam and DX evaluation, there is no indication for emergent intervention or inpatient TX. It is understood by the patient/guardian that if the SXs persist or worsen they need to return immediately for re-evaluation. I discussed with the patient/guardian in detail that at this point there is no indication for admission to the hospital. It is understood, however, that if the symptoms persist or worsen the patient needs to return immediately for re-evaluation. ED course: Pt ambulatory, ct imaging negative, is 2 days s/p injury, normal neuro exam. Will dc home with return precautions. . 01/01 10:13 Order name: CBC with Diff; Complete Time: 10:50 rn 01/01 10:13 Order name: Basic Metabolic Panel; Complete Time: 11:16 rn 01/01 10:13 Order name: Protime (+inr); Complete Time: 11:16 rn 01/01 10:13 Order name: Ptt, Activated; Complete Time: 11:16 rn 01/01 10:13 Order name: CT Head C Spine; Complete Time: 10:50 rn 01/01 10:13 Order name: IV Start; Complete Time: 10:18 rn Administered Medications: No medications were administered Disposition Summary: 01/02/24 13:49 Discharge Ordered Notes: Location: Home rn Problem: new rn Symptoms: have improved rn Condition: Stable rn Diagnosis - Unspecified injury of head, initial encounter rn - Concussion without loss of consciousness rn Followup: rn - With: Private Physician - When: As needed - Reason: Recheck today's complaints, Re-evaluation by your physician Discharge Instructions: - Discharge Summary Sheet rn - Concussion, Adult rn - Head Injury, Adult rn Forms: - Medication Reconciliation Form rn - Antibiotic real estate internship - Prescription Opioid Use rn - Patient Portal Instructions rn - Leadership Thank You Letter rn Signatures: Dispatcher [facility] Hiram Fam MD MD rn Lore Rowe RN RN ld1 Corrections: (The following items were deleted from the chart) 10:13 10:13 Head C Spine MPR Wo Con+CT.RAD.BRZ ordered. EDMS EDMS 10:13 10:13 CBC+H.LAB.BRZ ordered. EDMS EDMS 10:13 10:13 BASIC METABOLIC PANEL+C.LAB.BRZ ordered. EDMS EDMS 10:13 10:13 PROTIME (+INR)+COAG.LAB.BRZ ordered. EDMS EDMS 10:13 10:13 PTT, ACTIVATED+COAG.LAB.BRZ ordered. EDMS EDMS
[2024-01-02 15:18] VITALS: TEMP 98.2
[2024-01-02 15:23] VITALS: BP 130/72; O2SAT 99
== END 2024-01-02 14:24 | disposition home or self-care (01) ==
LOC: ER 10:10
DX: S06.0X0A Concussion without loss of consciousness, initial encounter (principal)
CPT/HCPCS: 36415; 70450; 72125; 80048; 85025; 85610; 85730

== ENCOUNTER 2024-01-14 05:39 | Emergency (ER) | payer MEDICARE ==
[2024-01-14] MEDS ORDERED: NA CHLORIDE 0.9% 1,000 ML ONE (06:24)
[2024-01-14 06:46] LABS: Absolute Basophils 0.1 K/uL (0-0.5); Absolute Eosinophils 0.1 K/uL (0-0.5); Absolute Lymphocytes (CBC) 1.8 K/uL (0.7-4.9); Absolute Monocytes 0.5 K/uL (0.1-1.3); Absolute Neutrophil 5.4 K/uL (1.8-8.0); Basophils % 0.8 % (0-1.3); Eosinophils % 1.6 % (0-4.4); Hematocrit 36.2 % (39.6-49.0); Lymphocytes % 22.2 % (15.3-44.8); MCH 29.9 pg (27.0-35.0); MCHC 33.2 g/dL (32.0-36.0); MCV 90.2 fL (80-100); MPV 8.7 fL (7.6-11.3); Monocytes % 6.8 % (3.3-12.3); Neutrophils % 68.6 % (41.7-73.7); Platelets 209 thou/uL (152-406); RBC Red Blood Cell Count 4.01 M/uL (4.33-5.43); Red Cell Distribution Width 14.3 % (12.1-15.2)
[2024-01-14 06:47] LABS: PT Prothrombin Time 11.5 SECONDS (9.4-12.5); PTT, Activated Partial Thromb 32.5 SECONDS (24.3-36.9); Protime INR 1.03
[2024-01-14 07:08] LABS: Albumin 3.1 g/dL (3.4-5.0); Albumin/Globulin Ratio 0.7 (1.1-1.8); Bilirubin Total 0.5 mg/dL (0.2-1.0); Globulin 4.2 g/dL (2.3-3.5); Protein, Total 7.3 g/dL (6.4-8.2)
--- NOTE | 2024-01-14 07:52 | RAD REPORT ---
EXAM DESCRIPTION: CT - Head Brain Wo Cont - 01/14/2024 7:42 am CLINICAL HISTORY: DIZZINESS COMPARISON: Head angio dated 01/14/2024 TECHNIQUE: Noncontrast head CT images were obtained without IV contrast. Multiplanar reformats were generated and reviewed. All CT scans are performed using dose optimization technique as appropriate and may include automated exposure control or mA/KV adjustment according to patient size. FINDINGS: No intracranial hemorrhage, mass, or edema. Midline structures are unremarkable. Normal ventricular caliber for age. Johnson-white matter differentiation is preserved, without evidence of acute infarct. No abnormal extra- axial fluid collections. Patchy periventricular and deep white matter hypodensities, nonspecific, but suggestive chronic small vessel ischemic changes. Mastoid air cells and visualized portions of the paranasal sinuses are clear. No acute bony findings. IMPRESSION: No evidence of an acute intracranial process.
--- NOTE | 2024-01-14 07:56 | RAD REPORT ---
EXAM DESCRIPTION: CT - Neck Angio - 01/14/2024 7:42 am CLINICAL HISTORY: dizziness COMPARISON: Head C Spine Mpr Wo Con dated 01/02/2024; CT HEAD CSPINE MPR WO CONTRAST dated 08/31/2013; H ead angio dated 01/14/2024; Head Brain Wo Cont dated 01/14/2024 TECHNIQUE: Axial CT angiography images of the neck was performed with multiplanar and maximum intens ity projection reconstructions. Images performed following intravenous administration of iodinated c ontrast. All CT scans are performed using dose optimization technique as appropriate and may include automated exposure control or mA/KV adjustment according to patient size. Quantification of carotid stenosis, if any, is performed according to NASCET criteria. FINDINGS: A left aortic arch is identified with normal three vessel configuration of the great vesse ls. No significant flow abnormality is seen of the common carotid bilaterally. No significant stenosis is identified involving the cervical segments of both internal carotid arteri es. Mild atherosclerotic calcific plaque formation at the carotid bifurcations bilaterally. Normal flow is seen within both vertebral arteries. IMPRESSION: No significant flow abnormality of the neck vessels is identified. CAROTID STENOSIS REFERENCE USING NASCET CRITERIA: % ICA stenosis = (1 - narrowest ICA diameter/diameter of distal cervical ICA) x 100. Mild - <50% stenosis. Moderate - 50-69% stenosis. Severe - 70-94% stenosis. Near occlusion - 95-99% stenosis. Occluded - 100% stenosis.
--- NOTE | 2024-01-14 07:58 | RAD REPORT ---
EXAM DESCRIPTION: CT - Head angio - 01/14/2024 7:42 am CLINICAL HISTORY: DIZZINESS COMPARISON: No comparisons TECHNIQUE: Axial CT angiography images of the head was performed with multiplanar and maximum intens ity projection reconstructions. Images performed following intravenous administration of iodinated c ontrast. All CT scans are performed using dose optimization technique as appropriate and may include automated exposure control or mA/KV adjustment according to patient size. FINDINGS: No evidence of large vessel occlusion. No evidence of aneurysm or dissection flap is detec fernanda. No flow-limiting stenosis or vascular malformation identified. Antegrade flow is seen in the vertebral arteries. The left vertebral artery is dominant. The right ve rtebral artery is diminutive throughout its course, and essentially terminates as the right PICA. The visualized dural venous sinuses are grossly patent. IMPRESSION: No evidence of large vessel occlusion or flow-limiting stenosis.
[2024-01-14 08:19] LABS: Barbiturates NEGATIVE (NEGATIVE); Benzodiazepines POSITIVE (NEGATIVE); Cocaine NEGATIVE (NEGATIVE); METHAMPHETAM NEGATIVE (NEGATIVE); Methadone NEGATIVE (NEGATIVE); Opiates NEGATIVE (NEGATIVE); Phencyclidine NEGATIVE (NEGATIVE); THC Cannibis NEGATIVE (NEGATIVE)
--- NOTE | 2024-01-14 08:47 | EDPHYS ---
Physician Documentation [facility] Name: Zachary Driscoll Age: 69 yrs Sex: Male : 1955 Arrival Date: 01/14/2024 Time: 05:39 Bed 5 Private MD: ED Physician Az Rowe HPI: 01/13 05:51 This 69 yrs old Male presents to ER via EMS with complaints of Dizziness. rn 05:51 The patient presents with feeling off balance. rn 05:52 Onset: The symptoms/episode began/occurred 2 week(s) ago. The patient has been recently rn seen at the [facility] Emergency Department, last week. 69-year-old male with past medical history of hepatitis C, postconcussion syndrome presents to the emergency department via EMS with complaints of dizziness. Patient states that he has had ongoing dizziness and loss of balance for the past 2 weeks since he was struck in the head with a tree limb while cleaning up his yard. He states that he has been having difficulty upon standing up to get out of bed or off the couch and has fallen without loss of consciousness on a couple of occasions which prompted him to call EMS. The patient was previously seen in this emergency department 12 days ago with similar symptoms and had a negative head CT at that time. Patient reports he has been Valium with last dose around 2 AM this morning as well as hydrocodone for low back pain with last dose at an unknown time. Denies any other complaints at this time. Historical: - Allergies: 05:44 Codeine; cp4 - PMHx: 05:44 Hepatitis C (Rotator cuff repair); cp4 - PSHx: 05:44 Rotator cuff repair; cp4 - Immunization history:: Adult Immunizations up to date. - Infectious Disease History:: Denies. - Social history:: Smoking status: Patient denies any tobacco usage or history of. ROS: 06:06 Constitutional: Negative for fever, chills, and weight loss, Respiratory: Negative for rn shortness of breath, cough, wheezing, and pleuritic chest pain, Abdomen/GI: Negative for abdominal pain, nausea, vomiting, diarrhea, and constipation, : Negative for injury, bleeding, discharge, and swelling, 06:06 Neuro: Positive for dizziness, gait disturbance, headache, Negative for loss of consciousness, numbness, weakness, 06:06 All other systems are negative, Exam: 06:09 Eyes: Pupils: constricted, bilaterally, rn 06:11 Constitutional: The patient appears in no acute distress, awake, rn 06:11 Cardiovascular: Exam negative for arrhythmia, edema, JVD, murmur, 06:11 Respiratory: Exam negative for chest pain, shortness of breath, wheezing, Respirations: normal, no acute changes, 06:11 Abdomen/GI: Exam negative for discomfort, distension, guarding, tenderness, 06:11 Neuro: Orientation: to person, place, time \T\ situation. Motor: is normal, 06:17 Head/Face: Normocephalic, atraumatic. ENT: Dry mucous membranes Neuro: Patient rn awake, slurred speech, slow to respond but at the same time is jovial and holds conversation. Equal strength throughout. 06:37 ECG was reviewed by the Attending Physician. rn Vital Signs: 05:42 BP 125 / 78; Pulse 79; Resp 18; Temp 98.2; Pulse Ox 98% ; Weight 85.73 kg; Height 6 ft. cp4 3 in. ; Pain 0/10; 06:52 BP 116 / 77; Pulse 64; Resp 18; Pulse Ox 94% ; cp4 07:12 BP 138 / 85; Pulse 63; Resp 16 S; Pulse Ox 98% on R/A; kc6 08:34 BP 119 / 64; Pulse 60; Resp 16 S; Pulse Ox 98% on R/A; kc6 05:42 Body Mass Index 23.62 (85.73 kg, 190.5 cm) cp4 05:42 Pain Scale: Adult cp4 MDM: 05:42 Patient medically screened. rn 08:48 Differential diagnosis: head injury, idiopathic dizziness, TIA, Postconcussive ms3 syndrome. Data reviewed: vital signs, nurses notes, lab test result(s), radiologic studies, and as a result, I will discharge patient. Consideration of Admission/Observation Escalation of care including admission/observation considered. Patient declining MRI and observation. Patient states he has a ride coming to pick him up and he will follow-up with his primary care physician.. I considered the following discharge prescriptions or medication management in the emergency department Medications were administered in the Emergency Department. See MAR. Independent interpretation of the following test(s) in the Emergency Department CT Scan: My interpretation is CT head without contrast images reviewed do not reveal intracranial hemorrhage. Counseling: I had a detailed discussion with the patient and/or guardian regarding the historical points, exam findings, and any diagnostic results supporting the discharge/admit diagnosis, lab results, radiology results, the need for outpatient follow up, to return to the emergency department if symptoms worsen or persist or if there are any questions or concerns that arise at home. ED course: Discussed obtaining MRI with patient. Patient declines and states he has a ride coming to pick him up and he will follow-up with his primary care physician. Discussed with patient risks of not obtaining MRI to include misdiagnosis, disability, . Patient is able to repeat back risks. Patient to follow-up with his primary care physician in 2 to 3 days. Patient understands and agrees with plan. All questions were answered. Return precautions discussed include worsening symptoms, or any other concerns. On reevaluation patient is without slurred speech, with steady gait in the emergency department, no numbness, weakness.. 01/13 06:07 Order name: CBC with Diff; Complete Time: 06:52 rn 01/13 06:07 Order name: Protime (+inr); Complete Time: 06:52 rn 01/13 06:07 Order name: Ptt, Activated; Complete Time: 06:52 rn 01/13 06:07 Order name: Urine Drug Screen; Complete Time: 08:47 rn 01/13 06:07 Order name: CMP; Complete Time: 07:49 rn 01/13 06:40 Order name: Glucose, Ancillary Testing; Complete Time: 06:43 EDDC 01/13 06:41 Order name: Glucose, Ancillary Testing EDDC 01/13 06:07 Order name: CT Head Brain wo Cont; Complete Time: 08:03 rn 01/13 06:07 Order name: Neck Angio CT; Complete Time: 08:03 rn 01/13 06:23 Order name: Head angio; Complete Time: 08:03 EDDC 01/13 06:07 Order name: IV Start; Complete Time: 06:13 rn 01/13 06:07 Order name: Cardiac monitoring; Complete Time: 06:13 rn 01/13 06:07 Order name: O2 Sat Monitoring; Complete Time: 06:13 rn 01/13 06:07 Order name: Glucose Level; Complete Time: 06:28 rn 01/13 06:07 Order name: EKG - Nurse/Tech; Complete Time: 06:13 rn EC:37 Rate is 69 beats/min. Rhythm is regular. QRS Everetts is Normal. [place] interval is normal. QRS rn interval is normal. QT interval is normal. No Q waves. T waves are Normal. No ST changes noted. Clinical impression: Normal ECG. Interpreted by me. Reviewed by me. Administered Medications: 06:29 Drug: NS 0.9% IV 1000 ml IV at 1000 ml once Route: IV; Rate: 1000 ml; Site: right cp4 antecubital; 08:47 Follow up: Response: No adverse reaction; IV Status: Completed infusion; IV Intake: kc6 1000ml Disposition Summary: 01/14/24 08:47 Discharge Ordered Notes: Location: Home ms3 Condition: Stable ms3 Diagnosis - Postconcussional syndrome ms3 - Dizziness- resolved ms3 - Slurred speech- resolved ms3 Followup: ms3 - With: Js Cobb MD - When: 2 - 3 days - Reason: Recheck today's complaints Discharge Instructions: - Discharge Summary Sheet ms3 - Post-Concussion Syndrome ms3 Forms: - Medication Reconciliation Form ms3 - Antibiotic Education ms3 - Prescription Opioid Use ms3 - Patient Portal Instructions ms3 - Leadership Thank You Letter ms3 Signatures: Dispatcher [employer] EDMS Hiram Ricardo MD MD rn Sims, Marcus, DO DO ms3 Lidia Hinojosa cp4 Mirna Rehman RN kc6 Corrections: (The following items were deleted from the chart) 06:08 06:08 CBC+H.LAB.BRZ ordered. EDDC EDMS 06:08 06:08 PROTIME (+INR)+COAG.LAB.BRZ ordered. EDDC EDMS 06:08 06:08 PTT, ACTIVATED+COAG.LAB.BRZ ordered. EDDC EDMS 06:08 06:08 URINE DRUG SCREEN+UC.LAB.BRZ ordered. EDDC EDMS 06:08 06:08 COMPREHENSIVE METABOLIC PANEL+C.LAB.BRZ ordered. EDDC EDMS 06:08 06:08 Head Brain Wo Cont+CT.RAD.BRZ ordered. EDMS EDMS 06:08 06:08 Neck Angio+CT.RAD.BRZ ordered. EDDC EDMS 06:17 06:11 Respiratory: Exam negative for chest pain, shortness of breath, wheezing, rn rn 06:17 06:11 Neuro: Orientation: to person, place, time \T\ situation. rn rn
--- NOTE | 2024-01-14 08:47 | ER ---
Nurse's Notes [facility] Name: Zachary Driscoll Age: 69 yrs Sex: Male : 1955 Arrival Date: 01/14/2024 Time: 05:39 Bed 5 Private MD: Diagnosis: Postconcussional syndrome;Dizziness- resolved;Slurred speech- resolved Presentation: 01/13 05:42 Chief complaint: EMS states: dizziness for 3 weeks. Patient was diagnosed with a cp4 concussion then. Coronavirus screen: Client denies travel out of the [place] in the last 14 days. At this time, the client does not indicate any symptoms associated with coronavirus-19. Ebola Screen: Patient negative for fever greater than or equal to 101.5 degrees Fahrenheit, and additional compatible Ebola Virus Disease symptoms Patient denies exposure to infectious person. Patient denies travel to an Ebola-affected area in the 21 days before illness onset. No symptoms or risks identified at this time. Initial Sepsis Screen: Does the patient meet any 2 criteria? No. Patient's initial sepsis screen is negative. Does the patient have a suspected source of infection? No. Patient's initial sepsis screen is negative. Risk Assessment: Do you want to hurt yourself or someone else? Patient reports no desire to harm self or others. Onset of symptoms was December 27, 2023. 05:42 Method Of Arrival: EMS: [facility] [place] [id number] 05:42 Acuity: VERNON 3 cp4 Triage Assessment: 05:44 General: Appears in no apparent distress. comfortable, Behavior is calm, cooperative, cp4 appropriate for age. Pain: Denies pain. EENT: No signs and/or symptoms were reported regarding the EENT system. Neuro: Level of Consciousness is awake, alert, obeys commands, Oriented to person, place, time, situation. Cardiovascular: Rhythm is sinus rhythm. Respiratory: Airway is patent Respiratory effort is even, unlabored. GI: No signs and/or symptoms were reported involving the gastrointestinal system. : No signs and/or symptoms were reported regarding the genitourinary system. Derm: No signs and/or symptoms reported regarding the dermatologic system. Musculoskeletal: No signs and/or symptoms reported regarding the musculoskeletal system. Historical: - Allergies: 05:44 Codeine; cp4 - PMHx: 05:44 Hepatitis C (Rotator cuff repair); cp4 - PSHx: 05:44 Rotator cuff repair; cp4 - Immunization history:: Adult Immunizations up to date. - Infectious Disease History:: Denies. - Social history:: Smoking status: Patient denies any tobacco usage or history of. Screenin:45 [facility] ED Fall Risk Assessment (Adult) History of falling in the last 3 months, cp4 including since admission Yes- fall prone (multiple falls) (3 pts) Confusion or Disorientation No (0 pts) Intoxicated or Sedated No (0 pts) Impaired Gait No (0 pts) Mobility Assist Device Used No (0 pt) Altered Elimination No (0 pt) Score/Fall Risk Level 3 or more points = High Risk Oriented to surroundings, Maintained a safe environment, Assessed \T\ reinforced patient's understanding of fall precautions, Hourly rounding (assess needs \T\ fall precautionary measures) done, Used ambulatory aids as needed (educated on \T\ assisted with). Abuse screen: Denies threats or abuse. Nutritional screening: No deficits noted. Tuberculosis screening: No symptoms or risk factors identified. Assessment: :45 Reassessment: No changes from previously documented assessment. cp4 07:12 General: Appears in no apparent distress. uncomfortable, well groomed, well developed, kc6 Behavior is calm, cooperative, appropriate for age. Neuro: Level of Consciousness is awake, alert, obeys commands, Oriented to person, place, time, situation, Appropriate for age Reports blurred vision dizziness, headache. Cardiovascular: Capillary refill < 3 seconds. Respiratory: Airway is patent Trachea midline Respiratory effort is even, unlabored, Respiratory pattern is regular, symmetrical. GI: No signs and/or symptoms were reported involving the gastrointestinal system. : No signs and/or symptoms were reported regarding the genitourinary system. EENT: No signs and/or symptoms were reported regarding the EENT system. Derm: No signs and/or symptoms reported regarding the dermatologic system. Skin is intact, is healthy with good turgor, Skin is pink, warm \T\ dry. Musculoskeletal: No signs and/or symptoms reported regarding the musculoskeletal system. Circulation, motion, and sensation intact. Capillary refill < 3 seconds, Range of motion: intact in all extremities. 08:34 Reassessment: Patient appears in no apparent distress at this time. No changes from kc6 previously documented assessment. Patient and/or family updated on plan of care and expected duration. Pain level reassessed. Patient is alert, oriented x 3, equal unlabored respirations, skin warm/dry/pink. Vital Signs: 05:42 BP 125 / 78; Pulse 79; Resp 18; Temp 98.2; Pulse Ox 98% ; Weight 85.73 kg; Height 6 ft. cp4 3 in. ; Pain 0/10; 06:52 BP 116 / 77; Pulse 64; Resp 18; Pulse Ox 94% ; cp4 07:12 BP 138 / 85; Pulse 63; Resp 16 S; Pulse Ox 98% on R/A; kc6 08:34 BP 119 / 64; Pulse 60; Resp 16 S; Pulse Ox 98% on R/A; kc6 05:42 Body Mass Index 23.62 (85.73 kg, 190.5 cm) cp4 05:42 Pain Scale: Adult cp4 ED Course: 05:41 Patient arrived in ED. cp4 05:42 Hiram Ricardo MD is Attending Physician. rn 05:42 Lidia Hinojosa is Primary Nurse. cp4 05:44 Triage completed. cp4 05:44 Arm band placed on right wrist. Patient placed in an exam room, on a stretcher. cp4 05:45 Bed in low position. Call light in reach. Side rails up X2. cp4 05:45 No provider procedures requiring assistance completed. Maintain EMS IV. Dressing cp4 intact. Good blood return noted. Site clean \T\ dry. Gauge \T\ site: 18G RAC. 06:28 Initial lab(s) drawn, by me, sent to lab. EKG done, by ED staff, reviewed by Hiram Ricardo MD. 07:00 Report received from Ana Hinojosa RN. kc6 07:00 display trimmer on. Pulse ox on. NIBP on. Door closed. Noise minimized. Lights dimmed. kc6 Pillow given. 07:[address] via wheelchair. kc6 07:44 CT Head Brain wo Cont In Process Unspecified. EDMS 07:[address] In Process Unspecified. EDMS 07:44 Head angio In Process Unspecified. EDMS 07:49 Attending Physician role handed off by Hiram Ricardo MD ms3 07:49 Az Rowe DO is Attending Physician. ms3 08:46 Js Cobb MD is Referral Physician. ms3 08:48 IV discontinued, intact, bleeding controlled, No redness/swelling at site. Pressure kc6 dressing applied. Administered Medications: 06:29 Drug: NS 0.9% IV 1000 ml IV at 1000 ml once Route: IV; Rate: 1000 ml; Site: right cp4 antecubital; 08:47 Follow up: Response: No adverse reaction; IV Status: Completed infusion; IV Intake: kc6 1000ml Medication: 05:45 VIS not applicable for this client. cp4 Intake: 08:47 IV: 1000ml; Total: 1000ml. kc6 Outcome: 08:47 Discharge ordered by MD. ms3 08:51 Discharged to home ambulatory, kc6 08:51 Condition: good 08:51 Discharge instructions given to patient, Instructed on discharge instructions, follow up and referral plans. Demonstrated understanding of instructions, follow-up care, 08:51 Patient left the ED. kc6 Signatures: Dispatcher [employer] EDMS Hiram Ricardo MD MD rn Sims, Marcus, DO DO ms3 Mirna Rehman, RN RN kc Lidia Hinojosa [facility]
[2024-01-14 08:57] VITALS: TEMP 98.2
[2024-01-14 09:00] VITALS: O2SAT 98
[2024-01-14 09:02] VITALS: BP 119/64
--- OUTSIDE RECORDS SUMMARY | 2024-01-15 13:38 | XMS REPORT | Continuity of Care Document ---
Author Name Unknown Address [address] [place] [address] [facility] thconnect Address [address] [place] [address] Care Team Providers Care Supervisor Anodizing Name Role Phone BART ULLOA Primary Care Physician Lucas Smith DO Attending Clinician LUCAS MORTON Attending Clinician Unavailable VI CARRINGTON Attending Clinician Unavailable Vi Carrington PA-C Attending Clinician GREGORY RUELAS Attending Clinician UnavailGregory Flowers MD Attending Clinician [phone] LUCAS MORTON Admitting Clinician Unavailable VI CARRINGTON Admitting Clinician Unavailable Payers Payer Name Policy Type Policy Number Effective Date Expirati on Date Source MEDICARE PART A AND B [id number] 2018 00:00:00 MEDICARE PART A \T\ B [id number] 2018 00:00:00 COMMERCIAL NON-CONTRACT GENERIC [id number] 2020 00:00:00 Problems Condition Name Condition Details Condition Category Status Onset Date Resolution Date Last Treatment Date Treating Clinician Comments Source Dysphagia Dysphagia Disease Active 06-03 00:00: 00 [facility] Food impaction of esophagus Food impaction of esophagus Disease Active 06-03 00:00: 00 [facility] Back pain, chronic Back pain, chronic Disease Active 06-03 00:00: 00 [facility] Muscle spasm Muscle spasm Disease Active 06-03 00:00: 00 [facility] Allergies, Adverse Reactions, Alerts Allergy Name Allergy Type Status Severity Reaction(s) Onset Date Inactive Date Treating Clinician Comments Source NO KNOWN ALLERGIE S Drug Class Active [facility] Social History Social Habit Start Date Stop Date Quantity Comments Source Exposure to SARS-CoV-2 (event) Not sure [facility] Gender identity [facility] Sexual orientation [facility] History of Social function 2021-04-04 00:00:00 2021-04-04 00:00:00 [facility] Alcohol intake 2021-04-04 00:00:00 2021-04-04 00:00:00 Lifetime non-drinker (finding) [facility] Tobacco use and exposure 2021-03-31 00:00:00 2021-03-31 00:00:00 Smokeless tobacco non-user [facility] Sex Ass[birth year] At 1955 00:00:00 1955 00:00:00 [facility] Smoking Status Start Date Stop Date Source Never smoked tobacco [facility] Medications Ordered Medication Name Filled Medication Name Start Date Stop Date Current Medication? Ordering Clinician Indication Dosage Frequency Signature (SIG) Comments Components Source HYDROcodone -acetaminop hen (NORCO) 10-325 mg tablet 1 tablet 12-14 18:00: 00 12-14 17:15 :00 No [id number] 1{tbl} 1 tablet, Oral, ONCE, 1 dose, On Sun12/14/22 at 1300, Routine [facility] methylPREDN ISolone (MEDROL, RAQUEL,) 4 mg tablets 12-14 00:00: 00 Yes [id number] Take by mouth SEE-INSTRU CTIONS. follow package directions [facility] methocarbam oL 500 mg tablet 12-14 00:00: 00 12-20 04:59 :00 No [id number] 500mg Take 1 tablet by mouth in the morning and 1 tablet at noon and 1 tablet in the evening. Do all this for 5 days. [facility] lidocaine 5 % (700 mg/patch) patch 12-14 00:00: 00 12-15 04:59 :00 No [id number] 1{patch } Apply 1 Patch to area(s) once now for 1 dose. [facility] clindamycin 150 mg capsule 2020-05 00:00: 00 Yes [id number] 300mg Take 2 capsules by mouth 3 (three) times daily. [facility] HYDROcodone -acetaminop hen 5-325 mg tablet 2020-05 00:00: 00 Yes [facility] sulfamethox azole-trime thoprim 800-160 mg per tablet 2020-05 00:00: 00 Yes [facility] CARISOPRODO L (SOMA ORAL) 06-04 15:44: 03 Yes Take by mouth. [facility] HYDROcodone -acetaminop hen (NORCO) 10-325 mg tablet 06-04 15:44: 03 Yes 1{tbl} Take 1 Tab by mouth every 6 (six) hours as needed. [facility] gabapentin (NEURONTIN) 300 mg capsule 06-04 15:44: 03 Yes 300mg Take 300 mg by mouth 3 (three) times daily. [facility] pantoprazol e (PROTONIX) 40 mg EC tablet 06-04 00:00: 00 Yes 40mg Take 1 Tab by mouth 2 (two) times daily. [facility] maalox/diph enhydrAMINE :lidocaine2 % viscous 1:1:1 (COMPOUNDED ) Susp suspension 06-04 00:00: 00 Yes 10mL Take 10 mL by mouth as needed for Nausea and Vomiting (N/V) or Indigestio n. [facility] Vital Signs Vital Name Observation Time Observation Value Comments S ource Systolic blood pressure 2022-12-14 18:37:42 157 mm[Hg] [facility] Diastolic blood pressure 2022-12-14 18:37:42 93 mm[Hg] [facility] Heart rate 2022-12-14 18:37:42 76 /min [facility] Respiratory rate 2022-12-14 18:37:42 18 /min [facility] Oxygen saturation in Arterial blood by Pulse oximetry 2022-12-14 18:37:42 99 /min [facility] Body temperature 2022-12-14 15:22:00 36.67 Lexis [facility] Body height 2022-12-14 15:22:[address] [facility] Body weight 2022-12-14 15:22:[address] [facility] BMI 2022-12-14 15:22:00 25.29 kg/m2 [facility] Systolic blood pressure 2021-03-31 14:50:00 162 mm[Hg] [facility] Diastolic blood pressure 2021-03-31 14:50:00 97 mm[Hg] [facility] Heart rate 2021-03-31 14:50:00 94 /min [facility] Body height 2021-03-31 14:48:[address] [facility] Body weight 2021-03-31 14:48:[address] [facility] BMI 2021-03-31 14:48:00 24.39 kg/m2 [facility] Procedures Procedure Date / Time Performed Performing Clinicia n Source XR RIBS 4+ VW LEFT 2022-12-14 15:50:39 Lucas Morton [facility] CONSENT/REFUSAL FOR DIAGNOSIS AND TREATMENT 2022-12-14 15:14:26 Doctor Unassigned, [place] [facility] XR LUMBAR SPINE 1 VW 2022-02-20 15:57:43 Vi Carrington [facility] Encounters Start Date/Time End Date/Time Encounter Type Admission Type Attending Clinicians Care Facility Care Department Encounter ID Source 2022 10:10:19 Outpatient [facility] [id number] [facility] 2021-12-14 11:18:22 Outpatient [facility] [id number] [facility] 2022-12-14 10:25:00 2022-12-14 13:41:00 Emergency Lucas Morton [facility] [id number] [facility] 2022-12-14 10:25:00 2022-12-14 13:41:00 Emergency X LUCAS MORTON [facility] ERT [id number] [facility] 2022-02-20 10:03:52 2022-02-20 23:59:00 Outpatient Crystal CARRINGTON [facility] [id number] [facility] 2022-02-20 10:03:52 2022-02-20 23:59:00 Hospital Encounter [facility] [id number] [facility] 2021-03-31 09:45:00 2021-03-31 10:14:28 Outpatient R GREGORY RUELAS [facility] [id number] [facility] 2021-03-31 09:24:38 2021-03-31 10:14:28 Office Visit Gregory Ruelas [facility] [id number] [facility] Notes Date/Time Note Provider Source 2022-12-14 13:40:34 [...] in no apparent distress. Hilario Dunaway RN [facility] 2022-12-14 10:22:05 Formatting of this n ote might be different from the original. Last night around midnight pt was took his dog outside. Shoelaces were long and he tripped over them. Hit left side ribs on concrete corner. Terra Woodard RN [facility]
--- NOTE | 2024-01-15 17:49 | EKG ---
Test Date: 2024-01-14 Test Time: 06:11:06 Melter Caster: [facility] MEASUREMENT RESULTS: Intervals: Rate: 69 ND: 148 QRSD: 90 QT: 388 QTc: 415 Sparks: P: 66 ND: 148 QRS: -16 T: 43 INTERPRETIVE STATEMENTS: Normal sinus rhythm Normal ECG Compared to ECG 08/31/2013 19:13:08 No significant changes Electronically Signed On 01-15-24 17:46:05 CDT by Asael Melara
== END 2024-01-14 08:51 | disposition home or self-care (01) ==
LOC: ER 05:39
DX: R51.9 Headache, unspecified (principal); F07.81 Postconcussional syndrome
CPT/HCPCS: 96361; 93005; 85025; 36415; 85610; 82947; 85730; 80053; 80307; 70450; 70496; 70498; 96360; 99285; Q9967; J7030

== ENCOUNTER 2024-02-01 10:48 | Emergency (ER) | payer MEDICARE ==
--- OUTSIDE RECORDS SUMMARY | 2024-02-01 10:51 | XMS REPORT | Continuity of Care Document ---
Author Name Unknown Address [address] [facility] [address] [place] [address] [facility] thconnect Address [address] [facility] [address] [place] [address] Care Team Providers Care Facility Maintenance Technician Name Role Phone PCP, PATIENT DOES NOT HAVE A Primary Care Physic rodney Unavailable LUCAS MORTON Attending Clinician Unavailable Lucas Morton DO Attending Clinician VI CARRINGTON Attending Clinician Unavailable Vi Carrington PA-C Attending Clinician [phone] GREGORY RUELAS Attending Clinician UnavailGregory Flowers MD Attending Clinician [phone] LUCAS MORTON Admitting Clinician Unavailable VI CARRINGTON Admitting Clinician Unavailable Payers Payer Name Policy Type Policy Number Effective Date Expirati on Date Source MEDICARE PART A AND B [id number] 2018 00:00:00 [facility] [id number] 00:00:00 MEDICARE PART A \T\ B [id number] 2018 00:00:00 COMMERCIAL NON-CONTRACT GENERIC [id number] 2020 00:00:00 Problems Condition Name Condition Details Condition Category Status Onset Date Resolution Date Last Treatment Date Treating Clinician Comments Source Dysphagia Dysphagia Disease Active 06-03 00:00: 00 [facility] Food impaction of esophagus Food impaction of esophagus Disease Active 06-03 00:00: 00 [facility] Back pain, chronic Back pain, chronic Disease Active 06-03 00:00: 00 [facility] Muscle spasm Muscle spasm Disease Active 06-03 00:00: 00 [facility] Allergies, Adverse Reactions, Alerts Allergy Name Allergy Type Status Severity Reaction(s) Onset Date Inactive Date Treating Clinician Comments Source NO KNOWN ALLERGIE S Drug Class Active [facility] Social History Social Habit Start Date Stop Date Quantity Comments Source Exposure to SARS-CoV-2 (event) Not sure [facility] History of Social function 2021-04-04 00:00:00 2021-04-04 00:00:00 [facility] Alcohol intake 2021-04-04 00:00:00 2021-04-04 00:00:00 Lifetime non-drinker (finding) [facility] Tobacco use and exposure 2021-03-31 00:00:00 2021-03-31 00:00:00 Smokeless tobacco non-user [facility] Sex Assigned At 1955 00:00:00 1955 00:00:00 [facility] Smoking Status Start Date Stop Date Source Never smoked tobacco [facility] Medications Ordered Medication Name Filled Medication Name Start Date Stop Date Current Medication? Ordering Clinician Indication Dosage Frequency Signature (SIG) Comments Components Source HYDROcodone -acetaminop hen (NORCO) 10-325 mg tablet 1 tablet 12-14 18:00: 00 12-14 17:15 :00 No [id number] 1{tbl} 1 tablet, Oral, ONCE, 1 dose, On Sun12/14/22 at 1300, Routine [facility] methylPREDN ISolone (MEDROL, RAQUEL,) 4 mg tablets 12-14 00:00: 00 Yes [id number] Take by mouth SEE-INSTRU CTIONS. follow package directions [facility] methocarbam oL 500 mg tablet 12-14 00:00: 00 12-20 04:59 :00 No [id number] 500mg Take 1 tablet by mouth in the morning and 1 tablet at noon and 1 tablet in the evening. Do all this for 5 days. [facility] lidocaine 5 % (700 mg/patch) patch 12-14 00:00: 00 12-15 04:59 :00 No [id number] 1{patch } Apply 1 Patch to area(s) once now for 1 dose. [facility] clindamycin 150 mg capsule 2020-05 00:00: 00 Yes [id number] 300mg Take 2 capsules by mouth 3 (three) times daily. [facility] HYDROcodone -acetaminop hen 5-325 mg tablet 2020-05 00:00: 00 Yes [facility] sulfamethox azole-trime thoprim 800-160 mg per tablet 2020-05 00:00: 00 Yes [facility] CARISOPRODO L (SOMA ORAL) 06-04 15:44: 03 Yes Take by mouth. [facility] HYDROcodone -acetaminop hen (NORCO) 10-325 mg tablet 06-04 15:44: 03 Yes 1{tbl} Take 1 Tab by mouth every 6 (six) hours as needed. [facility] gabapentin (NEURONTIN) 300 mg capsule 06-04 15:44: 03 Yes 300mg Take 300 mg by mouth 3 (three) times daily. [facility] pantoprazol e (PROTONIX) 40 mg EC tablet 06-04 00:00: 00 Yes 40mg Take 1 Tab by mouth 2 (two) times daily. [facility] maalox/diph enhydrAMINE :lidocaine2 % viscous 1:1:1 (COMPOUNDED ) Susp suspension 06-04 00:00: 00 Yes 10mL Take 10 mL by mouth as needed for Nausea and Vomiting (N/V) or Indigestio n. [facility] Vital Signs Vital Name Observation Time Observation Value Comments Frank spears Systolic blood pressure 2022-12-14 18:37:42 157 mm[Hg] [facility] Diastolic blood pressure 2022-12-14 18:37:42 93 mm[Hg] [facility] Heart rate 2022-12-14 18:37:42 76 /min [facility] Respiratory rate 2022-12-14 18:37:42 18 /min [facility] Oxygen saturation in Arterial blood by Pulse oximetry 2022-12-14 18:37:42 99 /min [facility] Body temperature 2022-12-14 15:22:00 36.67 Lexis [facility] Body height 2022-12-14 15:22:00 188 cm [facility] Body weight 2022-12-14 15:22:00 89.359 kg [facility] BMI 2022-12-14 15:22:00 25.29 kg/m2 [facility] Systolic blood pressure 2021-03-31 14:50:00 162 mm[Hg] [facility] Diastolic blood pressure 2021-03-31 14:50:00 97 mm[Hg] [facility] Heart rate 2021-03-31 14:50:00 94 /[facility] 2021-03-31 14:48:00 188 cm [facility] Body weight 2021-03-31 14:48:00 86.183 kg [facility] BMI 2021-03-31 14:48:00 24.39 kg/m2 [facility] Procedures Procedure Date / Time Performed Performing Clinicia n Source XR RIBS 4+ VW LEFT 2022-12-14 15:50:39 Lucas Morton [facility] CONSENT/REFUSAL FOR DIAGNOSIS AND TREATMENT 2022-12-14 15:14:26 Doctor Unassigned, [place] [facility] XR LUMBAR SPINE 1 VW 2022-02-20 15:57:43 Carrington, [facility] Encounters Start Date/Time End Date/Time Encounter Type Admission Type Attending Clinicians Care Facility Care Department Encounter ID Source 2022 10:10:19 Outpatient [facility] [id number] [facility] 2021-12-14 11:18:22 Outpatient [facility] [id number] [facility] 2022-12-14 10:25:00 2022-12-14 13:41:00 Emergency X LUCAS MORTON [facility] [id number] [facility] 2022-12-14 10:25:00 2022-12-14 13:41:00 Emergency Lucas Morton [facility] [id number] [facility] 2022-02-20 10:03:52 2022-02-20 23:59:00 Outpatient VI ALEJANDRE [facility] [id number] [facility] 2022-02-20 10:03:52 2022-02-20 23:59:00 Hospital Encounter [facility] [id number] [facility] 2021-03-31 09:45:00 2021-03-31 10:14:28 Outpatient R GREGORY RUELAS [facility] [id number] [facility] 2021-03-31 09:24:38 2021-03-31 10:14:28 Office Visit Gregory Ruelas [facility] [id number] [facility] Notes Date/Time Note Provider Source 2022-12-14 13:40:34 [...] in no apparent distress. Hilario Dunaway RN [facility] 2022-12-14 10:22:05 Formatting of this n ote might be different from the original. Last night around midnight pt was took his dog outside. Shoelaces were long and he tripped over them. Hit left side ribs on concrete corner. T Terra Woodard RN [facility]
[2024-02-01] MEDS ORDERED: ZIPRASIDONE MESYLA 20 MG/VIAL IM ONE (10:57)
[2024-02-01] MEDS ORDERED: WATER FOR INJ,STERILE 10 ML ONE (10:57)
[2024-02-01] MEDS ORDERED: LORazepam 2 MG/ML VIAL ONE (10:57)
[2024-02-01 11:10] LABS: Absolute Basophils 0.1 K/uL (0-0.5); Absolute Lymphocytes (CBC) 1.4 K/uL (0.7-4.9); Absolute Monocytes 0.8 K/uL (0.1-1.3); Absolute Neutrophil 10.4 K/uL (1.8-8.0); Basophils % 0.5 % (0-1.3); Eosinophils % 0.1 % (0-4.4); Hemoglobin 13.7 g/dL (13.6-17.9); Lymphocytes % 11.4 % (15.3-44.8); MCH 30.1 pg (27.0-35.0); MCHC 33.3 g/dL (32.0-36.0); MCV 90.2 fL (80-100); MPV 8.7 fL (7.6-11.3); Monocytes % 6.5 % (3.3-12.3); Neutrophils % 81.5 % (41.7-73.7); Platelets 312 thou/uL (152-406); RBC Red Blood Cell Count 4.55 M/uL (4.33-5.43); Red Cell Distribution Width 13.7 % (12.1-15.2)
[2024-02-01 11:17] LABS: PT Prothrombin Time 12.6 SECONDS (9.4-12.5); Protime INR 1.13
[2024-02-01] MEDS ORDERED: NA CHLORIDE 0.9% 1,000 ML ONE ×2 (11:20→13:06)
[2024-02-01 11:32] LABS: ALT/SGPT 115 U/L (16-61); AST/SGOT 74 U/L (15-37); Albumin 4.4 g/dL (3.4-5.0); Albumin/Globulin Ratio 0.9 (1.1-1.8); Alkaline Phosphatase 90 U/L (45-117); Anion Gap 17.4 mEq/L (5.0-15.0); BUN Blood Urea Nitrogen 45 mg/dL (7-18); Bicarbonate 18 mEq/L (21-32); Bilirubin Direct 0.5 mg/dL (0-0.2); Bilirubin Indirect, Calculated 0.9 mg/dL (0.2-0.8); Bilirubin Total 1.4 mg/dL (0.2-1.0); Glomerular Filtration Rate 23 ml/min (=/>90); Glucose Level 160 mg/dL (74-106); Potassium 3.4 mEq/L (3.5-5.1); Protein, Total 9.4 g/dL (6.4-8.2); Sodium Level 137 mEq/L (136-145); Troponin High Sensitivity 26.2 pg/mL (<58.9)
--- NOTE | 2024-02-01 12:41 | RAD REPORT ---
EXAM DESCRIPTION: [place] Single View02/01/2024 12:34 pm CLINICAL HISTORY: COUGH COMPARISON: CHEST SINGLE VIEW dated 08/31/2013 TECHNIQUE: Portable AP view of the chest. FINDINGS: The lungs are clear. No pneumothorax or effusion. The cardiomediastinal contours are unre markable. IMPRESSION: No acute cardiopulmonary process.
--- NOTE | 2024-02-01 13:09 | ER ---
Nurse's Notes [facility] Name: Zachary Driscoll Age: 69 yrs Sex: Male : 1955 Arrival Date: 02/01/2024 Time: 10:48 Bed 17 Private MD: Diagnosis: Bipolar disorder, current episode manic severe with psychotic features;Other acute kidney failure-on chronic;Dehydration Presentation: 01/31 10:48 Chief complaint: Brought in by Dannie Brock, found wandering street naked this hb morning. Coronavirus screen: At this time, the client does not indicate any symptoms associated with coronavirus-19. Ebola Screen: No symptoms or risks identified at this time. Onset of symptoms was February 01, 2024. 10:48 Method Of Arrival: Law Enforcement: Dannie Brock 10:48 Acuity: VERNON 2 hb 11:00 Initial Sepsis Screen: Does the patient meet any 2 criteria? No. Patient's initial jl7 sepsis screen is negative. Does the patient have a suspected source of infection? No. Patient's initial sepsis screen is negative. Risk Assessment: Do you want to hurt yourself or someone else? Patient reports no desire to harm self or others. Triage Assessment: 10:50 General: Appears slender, unkempt, Behavior is agitated, restless. Pain: Denies pain. hb Neuro: Level of Consciousness is awake, alert, obeys commands, confused, Oriented to person, place. Cardiovascular: Patient's skin is warm and dry. Respiratory: Respiratory effort is even, unlabored, Respiratory pattern is regular, symmetrical. Historical: - Allergies: 11:43 Codeine; hb - PMHx: 11:43 Hepatitis C (Rotator cuff repair); hb - PSHx: 11:43 Rotator cuff repair; hb - Immunization history:: Adult Immunizations unknown. - Infectious Disease History:: unable to obtain. - Family history:: not pertinent. - Social history:: Smoking status: Patient reports the use of cigarette tobacco products, Patient uses alcohol, street drugs. Screenin:00 [facility] ED Fall Risk Assessment (Adult) History of falling in the last 3 months, jl7 including since admission No falls in past 3 months (0 pts) Confusion or Disorientation Yes (5 pts) Intoxicated or Sedated Yes (3 pts) Impaired Gait No (0 pts) Mobility Assist Device Used No (0 pt) Altered Elimination No (0 pt) Score/Fall Risk Level 3 or more points = High Risk Oriented to surroundings, Maintained a safe environment, Activated bed/chair alarm. Abuse screen: Denies threats or abuse. Denies injuries from another. Nutritional screening: No deficits noted. Tuberculosis screening: No symptoms or risk factors identified. Assessment: 11:00 General: Appears in no apparent distress. uncomfortable, unkempt, Behavior is agitated, jl7 restless. Pain: Denies pain. Neuro: Level of Consciousness is awake, alert, obeys commands, Oriented to person, place, time. Cardiovascular: Denies chest pain, Patient's skin is warm and dry. Respiratory: Airway is patent Respiratory effort is even, unlabored, Respiratory pattern is regular, symmetrical, Denies shortness of breath. GI: No signs and/or symptoms were reported involving the gastrointestinal system. : Denies burning with urination, urinary frequency. Derm: Skin is pink, warm \\T\\ dry. 11:30 Reassessment: Instructed pt to provide urine sample. Pt refusing straight cath at this jl7 time. Will attempt to provide sample after fluids. 12:30 Reassessment: Patient appears in no apparent distress at this time. No changes from jl7 previously documented assessment. Patient and/or family updated on plan of care and expected duration. Pain level reassessed. 13:45 Reassessment: Patient appears in no apparent distress at this time. No changes from jl7 previously documented assessment. Patient and/or family updated on plan of care and expected duration. Pain level reassessed. Patient is alert, oriented x 3, equal unlabored respirations, skin warm/dry/pink. 14:46 Reassessment: Nurse to nurse with Ramiro at [facility], reports they will accept. jl7 15:34 Reassessment: EMS at bedside to transport pt. jl7 Psych: 11:00 [facility] Suicide Severity Screening: In the past month, have you wished you were jl7 or wished you could go to sleep and not wake up? Patient responds "No." "In the past month, have you actually had any thoughts of killing yourself?" Patient responds "no." "In your lifetime, have you ever done anything, started to do anything, or prepared to do anything to end your life?" Patient responds "no.". Subjective: Patient's mood is elevated, Delusions are denied, Hallucinations are visual. Objective: Patient is cooperative, Speech is rambling, rapid. Interventions: Patient placed in hospital gown. Searched person for dangerous items. Safety Checks: Door is open. Patient uses daily. Patient uses methamphetamines daily. Vital Signs: 10:50 BP 163 / 95; Pulse 118; Resp 20; Temp 97.7(TE); Pulse Ox 100% on R/A; Weight 83.91 kg; hb Height 6 ft. 3 in. ; Pain 0/10; 13:48 BP 183 / 97; Pulse 90; Resp 15; Pulse Ox 98% ; Pain 0/10; jl7 13:52 BP 169 / 74; Pulse 90; Resp 15; Pulse Ox 97% ; jl7 15:38 BP 173 / 82; Pulse 89; Resp 15; Pulse Ox 97% ; jl7 10:50 Body Mass Index 23.12 (83.91 kg, 190.5 cm) hb 10:50 Pain Scale: Adult hb 13:48 Pain Scale: Adult jl7 ED Course: 10:51 Patient arrived in ED. mr 10:53 John Johnson MD is Attending Physician. kalyn 11:00 Patient has correct armband on for positive identification. Provided Education on: Fall jl7 precautions. Pulse ox on. NIBP on. Warm blanket given. 11:02 Initial lab(s) drawn, by al, sent to lab. Inserted saline lock: 20 gauge in right hb forearm, using aseptic technique. 11:09 Triage completed. hb 11:09 Arm band placed on left wrist. hb 11:15 Floridalma Valdez, RN is Primary Nurse. jl7 11:39 EKG done, by ED staff, reviewed by John Johnson MD. cm10 12:36 Chest Single View XRAY In Process Unspecified. EDMS 13:25 CT Head Brain wo Cont In Process Unspecified. EDMS 13:27 CT Stone Protocol In Process Unspecified. EDMS 15:38 No provider procedures requiring assistance completed. IV discontinued, intact, jl7 bleeding controlled, No redness/swelling at site. Pressure dressing applied. Administered Medications: 11:02 Drug: Ativan IVP 2 mg IVP once Route: IVP; Site: right forearm; cm10 11:35 Follow up: Response: No adverse reaction cm10 11:02 Drug: Geodon IM 20 mg IM once Route: IM; Site: right vastus lateralis; cm10 11:35 Follow up: Response: No adverse reaction; No change in condition cm10 11:39 Drug: NS 0.9% IV 1000 ml IV at 1 bolus Per protocol; 1000 mL bolus Route: IV; Rate: 1 cm10 bolus; Site: right forearm; 13:00 Follow up: Response: No adverse reaction; IV Status: Completed infusion; IV Intake: cm10 1000ml 13:11 Drug: NS 0.9% IV 1000 ml IV at 1 bolus Per protocol; 1000 mL bolus Route: IV; Rate: 1 cm10 bolus; Site: right forearm; 14:15 Follow up: Response: No adverse reaction; IV Status: Completed infusion; IV Intake: jl7 1000ml Medication: 13:48 VIS not applicable for this client. jl7 Intake: 13:00 IV: 1000ml; Total: 1000ml. cm10 14:15 IV: 1000ml; Total: 2000ml. jl7 Outcome: 13:09 ER care complete, transfer ordered by MD. mccain 15:38 Discharged to home ambulatory, jl7 15:38 Condition: stable 15:38 Instructed on the need for transfer, Demonstrated understanding of unable to determine if pt understands 15:40 Patient left the ED. jl7 Signatures: Dispatcher [employer] EDJohn Bonilla MD MD cha Rivera, Mary, Reg Reg mr RichardsonSaira, RN Floridalma Caballero RN RN jl7 Martinez, Clarissa, RN RN cm10
--- NOTE | 2024-02-01 13:09 | EDPHYS ---
Physician Documentation [facility] Name: Zachary Driscoll Age: 69 yrs Sex: Male : 1955 Arrival Date: 02/01/2024 Time: 10:48 Bed 17 Private MD: ED Physician John Johnson HPI: 01/31 12:59 This 69 yrs old Male presents to ER via [employer] with complaints of kalyn Psych Problem. 12:59 The patient presents to the emergency department with anxiety, depression, psychosis, kalyn has delusions, a history of substance abuse. Onset: The symptoms/episode began/occurred 2 day(s) ago. Past psychiatric history: Prior diagnosis: addiction history, bipolar disorder, depression. Associated signs and symptoms: Pertinent positives;. Severity of symptoms: At their worst the symptoms were moderate in the emergency department the symptoms are unchanged. It is unknown whether or not the patient has had similar symptoms in the past. psychosis , xanax/ soma. Historical: - Allergies: 11:43 Codeine; hb - PMHx: 11:43 Hepatitis C (Rotator cuff repair); hb - PSHx: 11:43 Rotator cuff repair; hb - Immunization history:: Adult Immunizations unknown. - Infectious Disease History:: unable to obtain. - Family history:: not pertinent. - Social history:: Smoking status: Patient reports the use of cigarette tobacco products, Patient uses alcohol, street drugs. ROS: 12:59 Constitutional: Negative for fever, chills, and weight loss, Eyes: Negative for injury, kalyn pain, redness, and discharge, ENT: Negative for injury, pain, and discharge, Neck: Negative for injury, pain, and swelling, Cardiovascular: Negative for chest pain, palpitations, and edema, Respiratory: Negative for shortness of breath, cough, wheezing, and pleuritic chest pain, Abdomen/GI: Negative for abdominal pain, nausea, vomiting, diarrhea, and constipation, Back: Negative for injury and pain, : Negative for injury, bleeding, discharge, and swelling, MS/Extremity: Negative for injury and deformity, Skin: Negative for injury, rash, and discoloration, Psych: Negative for depression, anxiety, suicide ideation, homicidal ideation, and hallucinations, Allergy/Immunology: Negative for hives, rash, and allergies, Endocrine: Negative for neck swelling, polydipsia, polyuria, polyphagia, and marked weight changes, Hematologic/Lymphatic: Negative for swollen nodes, abnormal bleeding, and unusual bruising, 12:59 Neuro: Positive for altered mental status, Exam: 12:59 Constitutional: This is a well developed, well nourished patient who is awake, alert, kalyn and in no acute distress. Head/Face: Normocephalic, atraumatic. Eyes: Pupils equal round and reactive to light, extra-ocular motions intact. Lids and lashes normal. Conjunctiva and sclera are non-icteric and not injected. Cornea within normal limits. Periorbital areas with no swelling, redness, or edema. ENT: Nares patent. No nasal discharge, no septal abnormalities noted. Tympanic membranes are normal and external auditory canals are clear. Oropharynx with no redness, swelling, or masses, exudates, or evidence of obstruction, uvula midline. Mucous membranes moist. Neck: Trachea midline, no thyromegaly or masses palpated, and no cervical lymphadenopathy. Supple, full range of motion without nuchal rigidity, or vertebral point tenderness. No Meningismus. Chest/axilla: Normal chest wall appearance and motion. Nontender with no deformity. No lesions are appreciated. Respiratory: Lungs have equal breath sounds bilaterally, clear to auscultation and percussion. No rales, rhonchi or wheezes noted. No increased work of breathing, no retractions or nasal flaring. Abdomen/GI: Soft, non-tender, with normal bowel sounds. No distension or tympany. No guarding or rebound. No evidence of tenderness throughout. Back: No spinal tenderness. No costovertebral tenderness. Full range of motion. Male : Normal genitalia with no discharge or lesions. Skin: Warm, dry with normal turgor. Normal color with no rashes, no lesions, and no evidence of cellulitis. MS/ Extremity: Pulses equal, no cyanosis. Neurovascular intact. Full, normal range of motion. Neuro: Awake and alert, GCS 15, oriented to person, place, time, and situation. Cranial nerves II-XII grossly intact. Motor strength 5/5 in all extremities. Sensory grossly intact. Cerebellar exam normal. Normal gait. 12:59 Cardiovascular: Rate: tachycardic, actual rate is 118 bpm, Rhythm: regular, Pulses: Pulses are 4+ in bilateral radial, brachial, femoral, popliteal, posterior tibial and and dorsalis pedis arteries.. Heart sounds: normal, Edema: is not appreciated, JVD: is not appreciated, 12:59 ECG was reviewed by the Attending Physician. Vital Signs: 10:50 BP 163 / 95; Pulse 118; Resp 20; Temp 97.7(TE); Pulse Ox 100% on R/A; Weight 83.91 kg; hb Height 6 ft. 3 in. ; Pain 0/10; 13:48 BP 183 / 97; Pulse 90; Resp 15; Pulse Ox 98% ; Pain 0/10; jl7 13:52 BP 169 / 74; Pulse 90; Resp 15; Pulse Ox 97% ; jl7 15:38 BP 173 / 82; Pulse 89; Resp 15; Pulse Ox 97% ; jl7 10:50 Body Mass Index 23.12 (83.91 kg, 190.5 cm) hb 10:50 Pain Scale: Adult hb 13:48 Pain Scale: Adult jl7 MDM: 10:53 Patient medically screened. kalyn 13:05 Differential diagnosis: drug withdrawal. acute psychotic break, depression, psychosis kalyn secondary to non-compliance. Data reviewed: vital signs, nurses notes, EMS record, lab test result(s), EKG, radiologic studies, CT scan, plain films. Consideration of Admission/Observation Escalation of care including admission/observation considered. I considered the following discharge prescriptions or medication management in the emergency department Medications were administered in the Emergency Department. See MAR. Independent interpretation of the following test(s) in the Emergency Department EKG: See my EKG interpretation above. Test considered but Not performed: MRI: no mri brain. Historians other than the Patient: EMS: ems well informed. Care significantly affected by the following chronic conditions: Liver Disease, psych. Counseling: I had a detailed discussion with the patient and/or guardian regarding the historical points, exam findings, and any diagnostic results supporting the discharge/admit diagnosis, the presence of at least one elevated blood pressure reading (>120/80) during this emergency department visit, lab results, radiology results, the need to transfer to another facility, for higher level of care, [facility] does not immediately have the required specialist. 01/31 10:54 Order name: Acetaminophen; Complete Time: 12:50 [facility] 01/31 10:54 Order name: Basic Metabolic Panel; Complete Time: 12:50 [facility] 01/31 10:54 Order name: CBC with Diff; Complete Time: 12:50 [facility] 01/31 10:54 Order name: ETOH Level; Complete Time: 12:50 [facility] 01/31 10:54 Order name: Hepatic Function; Complete Time: 12:50 [facility] 01/31 10:54 Order name: PT-INR; Complete Time: 12:50 [facility] 01/31 10:54 Order name: Ptt, Activated; Complete Time: 12:50 [facility] 01/31 10:54 Order name: Salicylate; Complete Time: 12:50 [facility] 01/31 10:54 Order name: Urinalysis w/ reflexes; Complete Time: 14:23 [facility] 01/31 10:54 Order name: Urine Drug Screen; Complete Time: 14:23 [facility] 01/31 10:54 Order name: Troponin High Sensitivity; Complete Time: 12:50 [facility] 01/31 10:54 Order name: Chest Single View XRAY; Complete Time: 12:50 [facility] 01/31 12:52 Order name: CT Stone Protocol [facility] 01/31 13:07 Order name: CT Head Brain wo Cont [facility] 01/31 10:54 Order name: EKG - Nurse/Tech; Complete Time: 11:35 [facility] 01/31 10:54 Order name: IV Saline Lock; Complete Time: 11:16 [facility] 01/31 10:54 Order name: Labs collected and sent; Complete Time: 11:16 [facility] 01/31 10:54 Order name: Suicide Screening ([place]); Complete Time: 11:16 [facility] 01/31 14:25 Order name: PO challenge: juice; Complete Time: 14:51 [facility] EC:59 Rate is 105 beats/min. Rhythm is regular. QRS [place] is Normal. DC interval is normal. [facility] QRS interval is normal. QT interval is normal. No Q waves. T waves are Normal. No ST changes noted. Clinical impression: Sinus tachycardia and No evidence of ischemia. Interpreted by me. Reviewed by me. Administered Medications: 11:02 Drug: Ativan IVP 2 mg IVP once Route: IVP; Site: right forearm; cm10 11:35 Follow up: Response: No adverse reaction cm10 11:02 Drug: Geodon IM 20 mg IM once Route: IM; Site: right vastus lateralis; cm10 11:35 Follow up: Response: No adverse reaction; No change in condition cm10 11:39 Drug: NS 0.9% IV 1000 ml IV at 1 bolus Per protocol; 1000 mL bolus Route: IV; Rate: 1 cm10 bolus; Site: right forearm; 13:00 Follow up: Response: No adverse reaction; IV Status: Completed infusion; IV Intake: cm10 1000ml 13:11 Drug: NS 0.9% IV 1000 ml IV at 1 bolus Per protocol; 1000 mL bolus Route: IV; Rate: 1 cm10 bolus; Site: right forearm; 14:15 Follow up: Response: No adverse reaction; IV Status: Completed infusion; IV Intake: jl7 1000ml Disposition Summary: 02/01/24 13:09 Transfer Ordered Notes: Transfer Location: Psych Facility kalyn Reason: Higher level of care kalyn Condition: Fair kalyn Problem: new kalyn Symptoms: have improved kalyn Accepting Physician: to psych(02/01/24 15:40) jl7 Diagnosis - Bipolar disorder, current episode manic severe with psychotic features kalyn - Other acute kidney failure - on chronic kalyn - Dehydration kalyn Forms: - Medication Reconciliation Form kalyn - SBAR form kalyn Signatures: Dispatcher [employer] EDMS John Johnson MD MD cha Baxter, Heather RN Floridalma Caballero RN RN jl7 Nida Grubbs RN RN cm10 Corrections: (The following items were deleted from the chart) 10:55 10:55 ACETAMINOPHEN+C.LAB.BRZ ordered. EDMS EDMS 10:55 10:55 BASIC METABOLIC PANEL+C.LAB.BRZ ordered. EDMS EDMS 10:55 10:55 CBC+H.LAB.BRZ ordered. EDMS EDMS 10:55 10:55 ETHANOL+C.LAB.BRZ ordered. EDMS EDMS 10:55 10:55 HEPATIC FUNCTION+C.LAB.BRZ ordered. EDMS EDMS 10:55 10:55 PROTIME (+INR)+COAG.LAB.BRZ ordered. EDMS EDMS 10:55 10:55 PTT, ACTIVATED+COAG.LAB.BRZ ordered. EDMS EDMS 10:55 10:55 SALICYLATE+C.LAB.BRZ ordered. EDMS EDMS 10:55 10:55 Urinalysis+U.LAB.BRZ ordered. EDMS EDMS 10:55 10:55 URINE DRUG SCREEN+UC.LAB.BRZ ordered. EDMS EDMS 10:55 10:55 Chest Single View+RAD.RAD.BRZ ordered. EDMS EDMS 10:55 10:55 Troponin High Sensitivity+C.LAB.BRZ ordered. EDMS EDMS 12:52 12:52 Stone Protocol+CT.RAD.BRZ ordered. EDMS EDMS 15:40 13:09 to psych [facility] jl7
[2024-02-01 13:56] LABS: Sqamous Epithelial <5 /HPF (None Seen); Urine Bacteria None Seen /HPF (<20); Urine Bilirubin NEGATIVE (Negative); Urine Blood Negative (Negative); Urine Clarity Turbid (Clear); Urine Color Yellow (Yellow); Urine Culture Reflex Order NOT NEEDED; Urine Glucose NEGATIVE (Negative); Urine Ketones 1+ (Negative); Urine Microscopic Reflex YN ORDER UMIC; Urine Mucus Slight /HPF (None Seen); Urine Nitrite NEGATIVE (Negative); Urine Protein TRACE (Negative); Urine RBC None Seen /HPF (None Seen); Urine Urobilinogen Normal (Normal); Urine WBC <5 /HPF (<5); Urine Yeast (Budding) Trace /HPF (None Seen)
[2024-02-01 14:08] LABS: Barbiturates NEGATIVE (NEGATIVE); Benzodiazepines NEGATIVE (NEGATIVE); Cocaine NEGATIVE (NEGATIVE); METHAMPHETAM NEGATIVE (NEGATIVE); Methadone NEGATIVE (NEGATIVE); Opiates NEGATIVE (NEGATIVE); Phencyclidine NEGATIVE (NEGATIVE); THC Cannibis NEGATIVE (NEGATIVE)
--- NOTE | 2024-02-01 14:27 | RAD REPORT ---
EXAM DESCRIPTION: CT - Head Brain Wo Cont - 02/01/2024 1:40 pm CLINICAL HISTORY: MENTAL STATUS CHANGE COMPARISON: Head Brain Wo Cont dated 01/14/2024; Head angio dated 01/14/2024 TECHNIQUE: Noncontrast head CT images were obtained without IV contrast. Multiplanar reformats were generated and reviewed. All CT scans are performed using dose optimization technique as appropriate and may include automated exposure control or mA/KV adjustment according to patient size. FINDINGS: No intracranial hemorrhage, mass, or edema. Midline structures are unremarkable. Normal ventricular caliber for age. Stable mild periventricular and deep white matter hypodensities, nonspecific, but suggestive of chron ic small vessel ischemic changes. Johnson-white matter differentiation is preserved, without evidence of acute infarct. No abnormal extra- axial fluid collections. Mastoid air cells and visualized portions of the paranasal sinuses are clear. No acute bony findings. IMPRESSION: No evidence of an acute intracranial process.
--- NOTE | 2024-02-01 14:30 | RAD REPORT ---
EXAM DESCRIPTION: CT - Stone Protocol - 02/01/2024 1:41 pm CLINICAL HISTORY: FLANK PAIN COMPARISON: Lumbar Spine Wo Con dated 01/20/2019 TECHNIQUE: Thin cut axial CT imaging of the abdomen and pelvis was performed without IV contrast. Mu ltiplanar reformats were generated and reviewed. All CT scans are performed using dose optimization technique as appropriate and may include automated exposure control or mA/KV adjustment according to patient size. FINDINGS: Motion artifact particularly at the mid abdomen limits evaluation. No suspicious findings in the lung bases. The liver, spleen, adrenal glands, and pancreas show no suspicious findings. Gallbladder and biliary tree are also without suspicious finding. Symmetric renal contour, without suspicious parenchymal findings within limits of noncontrast techniq ue. Stable small left parapelvic cyst measuring 2.6 cm. No evidence of radiopaque calculi or hydroure teronephrosis. No dilated bowel loops or bowel wall thickening. No free air, free fluid or inflammatory stranding. N o hernia, mass or bulky lymphadenopathy. The urinary bladder is without significant finding. No suspicious bony findings. IMPRESSION: No acute intra-abdominal process.
[2024-02-01 16:11] VITALS: TEMP 97.7
[2024-02-01 16:22] VITALS: O2SAT 97
[2024-02-01 16:24] VITALS: BP 173/82
--- NOTE | 2024-02-04 17:10 | EKG ---
Test Date: 2024-02-01 Test Time: 11:23:56 Retirement Sales Consultant: CRISTY MEASUREMENT RESULTS: Intervals: Rate: 105 WA: 132 QRSD: 84 QT: 352 QTc: 465 [place]: P: 75 WA: 132 QRS: 38 T: 80 INTERPRETIVE STATEMENTS: Sinus tachycardia with premature atrial complexes Otherwise normal ECG Compared to ECG 01/14/2024 06:11:06 Atrial premature complex(es) now present Sinus rhythm no longer present Electronically Signed On 02-04-24 17:01:42 CDT by Joe Caruso
== END 2024-02-01 15:40 ==
LOC: ER 10:48
DX: F31.2 Bipolar disorder, current episode manic severe with psychotic features (principal); E86.0 Dehydration; N18.9 Chronic kidney disease, unspecified; N17.8 Other acute kidney failure; F17.210 Nicotine dependence, cigarettes, uncomplicated
CPT/HCPCS: 96361; 93005; 85025; 81001; 80048; 36415; 85610; 80076; 85730; 84484; 80307; 70450; 76377; 74176; 71045; 96372; 96374; 99285; 80143; 80179; 82077; J3486; J7030 ×2

== ENCOUNTER 2024-09-30 12:31 | Emergency (ER) | payer MEDICARE ==
[2024-09-30] MEDS ORDERED: HYDROCODONE/APAP 10/325 TAB ONE (12:48)
--- OUTSIDE RECORDS SUMMARY | 2024-09-30 13:06 | XMS REPORT | Continuity of Care Document ---
Author Name Unknown Address [address] [facility] Jose Luis. [address] [place] [address] [facility] Address [address] [facility]. [address] [place] [address] Care Team Providers Care [employer] Dean Name Role Phone BART ULLOA Primary Care Physician Beverly Easley Attending Clinician UnavailSuzanne Moser Attending Clinician [phone] Susanna Dodge Attending Clinician LUCAS MORTON Attending Clinician Unavailable Lucas Morton DO Attending Clinician [phone] VI CARRINGTON Attending Clinician Unavailable Vi Carrington PA-C Attending Clinician GREGORY GILBERT Attending Clinician UnavailGregory Flowers MD Attending Clinician LUCAS MORTON Admitting Clinician Unavailable VI CARRINGTON Admitting Clinician Unavailable Payers Payer Name Policy Type Policy Number Effective Date Expirati on Date Source MEDICARE PART A AND B [id number] 2018 00:00:00 [place] [facility] [place] [id number] 00:00:00 MEDICARE PART A \T\ B [id number] 2018 00:00:00 COMMERCIAL NON-CONTRACT GENERIC [id number] 2020 00:00:00 Problems Condition Name Condition Details Condition Category Status Onset Date Resolution Date Last Treatment Date Treating Clinician Comments Source Dysphagia Dysphagia Disease Active 06-03 00:00: 00 [facility] Food impaction of esophagus Food impaction of esophagus Disease Active 06-03 00:00: 00 [facility] Back pain, chronic Back pain, chronic Disease Active 06-03 00:00: 00 [facility] Muscle spasm Muscle spasm Disease Active 06-03 00:00: 00 [facility] [id number] Sacroiliit is Problem [facility] Chronic pain Chronic pain Problem [facility] [id number] Chronic lumbar radiculopa thy Problem [facility] [id number] Cervical spondylosi s Problem [facility] [id number] Lumbar spondylosi s Problem [facility] Cervical pain Cervical pain Problem [facility] Chronic pain syndrome Chronic pain syndrome Problem [facility] Allergies, Adverse Reactions, Alerts Allergy Name Allergy Type Status Severity Reaction(s) Onset Date Inactive Date Treating Clinician Comments Source codeine codeine Active Unknown [facility] NO KNOWN ALLERGIE S Drug Class Active [facility] Social History Social Habit Start Date Stop Date Quantity Comments Source Exposure to SARS-CoV-2 (event) Not sure [facility] History of Tobacco Use Current Smoker [facility] Sex Assigned At [facility] History of Social function 2021-04-04 00:00:00 2021-04-04 00:00:00 [facility] Alcohol intake 2021-04-04 00:00:00 2021-04-04 00:00:00 Lifetime non-drinker (finding) [facility] Tobacco use and exposure 2021-03-31 00:00:00 2021-03-31 00:00:00 Smokeless tobacco non-user [facility] Smoking Status Start Date Stop Date Source Current Smoker 2024-07-03 00:00:00 [facility] Never smoked tobacco [facility] Medications Ordered Medication Name Filled Medication Name Start Date Stop Date Current Medication? Ordering Clinician Indication Dosage Frequency Signature (SIG) Comments Components Source HYDROcodone -Acetaminop hen 5-325 MG HYDROcodone -Acetaminop hen 5-325 MG 3- 00:00: 00 No 1{table t_as_ne eded} BID HYDROcodon e-Acetamin ophen 5-325 MG Celecoxib 200 MG Celecoxib 200 MG 2023-05 2 00:00: 00 No 1{capsu le_with _food} QD Celecoxib 200 MG tiZANidine HCl 4 MG tiZANidine HCl 4 MG 2023-05 009 00:00: 00 No 1{table t_at_be dtime_a s_neede d} QD tiZANidine HCl 4 MG HYDROcodone -acetaminop hen (NORCO) 10-325 mg tablet 1 tablet 12-14 18:00: 00 12-14 17:15 :00 No [id number] 1{tbl} 1 tablet, Oral, ONCE, 1 dose, On Sun12/14/22 at 1300, Routine [facility] methylPREDN ISolone (MEDROL, RAQUEL,) 4 mg tablets 12-14 00:00: 00 Yes [id number] Take by mouth SEE-INSTRU CTIONS. follow package directions [facility] methocarbam oL 500 mg tablet 12-14 00:00: 00 12-20 04:59 :00 No [id number] 500mg Take 1 tablet by mouth in the morning and 1 tablet at noon and 1 tablet in the evening. Do all this for 5 days. [facility] lidocaine 5 % (700 mg/patch) patch 12-14 00:00: 00 12-15 04:59 :00 No [id number] 1{patch } Apply 1 Patch to area(s) once now for 1 dose. [facility] clindamycin 150 mg capsule 2020-05 00:00: 00 Yes [id number] 300mg Take 2 capsules by mouth 3 (three) times daily. [facility] sulfamethox azole-trime thoprim 800-160 mg per tablet 2020-05 00:00: 00 Yes [facility] CARISOPRODO L (SOMA ORAL) 06-04 15:44: 03 Yes Take by mouth. [facility] HYDROcodone -acetaminop hen (NORCO) 10-325 mg tablet 06-04 15:44: 03 Yes 1{tbl} Take 1 Tab by mouth every 6 (six) hours as needed. [facility] pantoprazol e (PROTONIX) 40 mg EC tablet 06-04 00:00: 00 Yes 40mg Take 1 Tab by mouth 2 (two) times daily. [facility] maalox/diph enhydrAMINE :lidocaine2 % viscous 1:1:1 (COMPOUNDED ) Susp suspension 06-04 00:00: 00 Yes 10mL Take 10 mL by mouth as needed for Nausea and Vomiting (N/V) or Indigestio n. [facility] alprazolam 2 mg tablet alprazolam 2 mg tablet Yes [facility] hydrocodone -acetaminop hen 5-325 mg tablet hydrocodone -acetaminop hen 5-325 mg tablet Yes [facility] alprazolam 2 mg tablet alprazolam 2 mg tablet Yes [facility] hydrocodone -acetaminop hen 5-325 mg tablet hydrocodone -acetaminop hen 5-325 mg tablet Yes [facility] alprazolam 2 mg tablet alprazolam 2 mg tablet Yes [facility] hydrocodone -acetaminop hen 5-325 mg tablet hydrocodone -acetaminop hen 5-325 mg tablet Yes [facility] traZODone HCl 50 MG traZODone HCl 50 MG No traZODone HCl 50 MG Haloperidol 5 MG Haloperidol 5 MG No Haloperido l 5 MG ALPRAZolam 2 MG ALPRAZolam 2 MG No ALPRAZolam 2 MG Gabapentin 300 MG Gabapentin 300 MG No Gabapentin 300 MG Divalproex Sodium ER 250 MG Divalproex Sodium ER 250 MG No Divalproex Sodium ER 250 MG Vital Signs Vital Name Observation Time Observation Value Comments S ource height 2024-04-30 15:45:00 74 [in_i] [facility] weight-kg 2024-04-30 15:45:00 86.18 kg [facility] bmi 2024-04-30 15:45:00 24.39 kg/m2 Shirlene r [facility] heart rate 2024-04-30 15:45:00 84 /min [facility] blood pressure systolic 2024-04-30 15:45:00 136 mm[Hg] [facility] blood pressure diastolic 2024-04-30 15:45:00 85 mm[Hg] [facility] height 2024-03-05 15:30:00 74 [in_i] [facility] weight-kg 2024-03-05 15:30:00 86.18 kg [facility] bmi 2024-03-05 15:30:00 24.39 kg/m2 Shirlene r [facility] heart rate 2024-03-05 15:30:00 87 /min [facility] blood pressure systolic 2024-03-05 15:30:00 141 mm[Hg] [facility] blood pressure diastolic 2024-03-05 15:30:00 89 mm[Hg] [facility] Systolic blood pressure 2022-12-14 18:37:42 157 mm[Hg] [facility] Diastolic blood pressure 2022-12-14 18:37:42 93 mm[Hg] [facility] Heart rate 2022-12-14 18:37:42 76 /min [facility] Respiratory rate 2022-12-14 18:37:42 18 /min [facility] Oxygen saturation in Arterial blood by Pulse oximetry 2022-12-14 18:37:42 99 /min [facility] Body temperature 2022-12-14 15:22:00 36.67 Lexis [facility] Body height 2022-12-14 15:22:[address] [facility] Body weight 2022-12-14 15:22:[address] [facility] BMI 2022-12-14 15:22:00 25.29 kg/m2 [facility] Systolic blood pressure 2021-03-31 14:50:00 162 mm[Hg] Elon o [facility] Diastolic blood pressure 2021-03-31 14:50:00 97 mm[Hg] Elon o [facility] Heart rate 2021-03-31 14:50:00 94 /min [facility] Body height 2021-03-31 14:48:[address] [facility] Body weight 2021-03-31 14:48:[address] [facility] BMI 2021-03-31 14:48:00 24.39 kg/m2 [facility] Procedures Procedure Date / Time Performed Performing Clinicia n Source XR RIBS 4+ VW LEFT 2022-12-14 15:50:39 Lucas Morton [facility] CONSENT/REFUSAL FOR DIAGNOSIS AND TREATMENT 2022-12-14 15:14:26 Doctor Unassigned, [place] [facility] XR LUMBAR SPINE 1 VW 2022-02-20 15:57:43 Vi Carrington [facility] Encounters Start Date/Time End Date/Time Encounter Type Admission Type Attending Clinicians Care Facility Care Department Encounter ID Source 2024-03-05 15:28:01 Outpatient Beverly Cm [facility] [id number] [facility] 2022 10:10:19 Outpatient [facility] [id number] [facility] 2021-12-14 11:18:22 Outpatient [facility] [id number] [facility] 2024-08-21 11:09:00 2024-08-21 11:24:00 [place] [facility] [place] Closure [id number] 16:00:00 2024-08-19 17:00:00 Annual D2Me Susanna Dodge [id number] [facility] 2024-05-29 00:00:00 2024-05-29 00:00:00 (TEL) CLS CLS [id number] [facility] 2024-05-26 00:00:00 2024-05-26 00:00:00 (TEL) CLS CLS [id number] [facility] 2024-05-26 00:00:00 2024-05-26 00:00:00 (TEL) CLS CLS [id number] [facility] 2024-05-02 00:00:00 2024-05-02 00:00:00 (TEL) CLS CLS [id number] [facility] 2024-04-30 00:00:00 2024-04-30 00:00:00 Office Visit- Est Pt.- Level 4 CLS CLS [id number] [facility] 2024-04-17 00:00:00 2024-04-17 00:00:00 (TEL) CLS CLS [id number] [facility] 2024-03-28 00:00:00 2024-03-28 00:00:00 (TEL) CLS CLS [id number] [facility] 2024-03-05 00:00:00 2024-03-05 00:00:00 Office Visit- New Pt.- Level 5 CLS CLS [id number] [facility] 2024-02-13 16:00:00 2024-02-13 17:00:00 Initial D2Me Susanna Dodge [id number] 2022-12-14 10:25:00 2022-12-14 13:41:00 Emergency X LUCAS MORTON PRANA ERT [id number] [facility] 2022-12-14 10:25:00 2022-12-14 13:41:00 Emergency Lucas Morton PRANA [facility] [id number] [facility] 2022-02-20 10:03:52 2022-02-20 23:59:00 Outpatient R VI CARRINGTON [facility] [id number] [facility] 2022-02-20 10:03:52 2022-02-20 23:59:00 Hospital Encounter Vi Carrington [facility] [id number] [facility] 2021-03-31 09:45:00 2021-03-31 10:14:28 Outpatient R OFELIA GREGORY [facility] [id number] [facility] 2021-03-31 09:24:38 2021-03-31 10:14:28 Office Visit Gregory Gilbert [facility] [id number] [facility] Notes Date/Time Note Provider Source 2024-08-21 11:09:00 D2Me [place] STARS PANEL WORK PROTOCOL<hr> <hr> Do you have any Care Coordination tasks from the ADMINISTRATION VICE PRESIDENT?: Yes Do you plan to complete any Post CA Follow Up Support today?: No ? Care Coordination Support: Colon Cancer Screening How would member like to complete their outstanding FIT KIT labwork?: Member confirmed kit in possession, will complete Suzanne Jarquin [facility] 2024-08-19 16:00:00 ASSESSMENT SUMMARY ALYCIA DRISCOLL is a 69 year old man seen today by [facility] for a [facility] Visit. Members Preferred Language [place]ian Patient Currently Located in their home state of [place], YES DIAGNOSIS WSAQZSGS83.3 - NgcwrmitryP85.25 - Body mass index [BMI] 25.0-25.9, pvipqJ14.12 - Post-traumatic stress disorder, jgdfyrvE09.5 - Hyperlipidemia, cpfswgconxyE84.2 - Chronic viral hepatitis CG89.4 - Chronic pain drxrheptY24.2 - Chronic kidney disease, stage 2 (mild)I12.9 - Hypertensive chronic kidney disease with stage 1 through stage 4 chronic kidney disease, or unspecified chronic kidney wewxmjbO77.11 - Encounter for screening for malignant neoplasm of colon VISIT PURPOSE, PATIENT'S GOALS, & AGENDA SETTING Annual Wellness Visit with PCP completed this year?: AWV not completed/scheduled this year Assistance wanted with helping to schedule AWV with PCP?: Yes MEDICATION RECONCILIATION Did you review the patient's prescription and non-prescription drugs, vitamins, herbal remedies, and other supplements, AND is the accompanying medication list documented in the medical record?: Yes GENERAL ASSESSMENT* Feet: 6 Inches: 2 WEIGHT (pounds): 198 <hr> BODY MEASUREMENTS:<em>Patient Height in centimeters</em>: 187.96<em>Patient Weight in kilograms</em>: 89.81<em>Patient Body Mass Index</em>: 25.42 Dx: E66.3 - OverweightDISCUSSED: Dietary counseling was provided Dx: Z68.25 - Body mass index [BMI] 25.0-25.9, adultDISCUSSED: Dietary counseling was provided Supplemental oxygen status: Room Air In general, would you say your quality of life is: Very good Do you exercise regularly?: Yes Physical activity level during a typical week: Very active working on his property. ACTION: Counseled patient on health benefits of regular physical activity SCREENING - Depression Previously diagnosed with major depressive disorder?: No Is the patient currently on antidepressant medication?: No Little interest or pleasure in doing things?: Not at all (0) Feeling down, depressed, or hopeless?: Not at all (0) Had > 1 episode of major depression?: No Previously recorded diagnosis of bipolar disorder, schizoaffective disorder, or schizophrenia?: No / Unknown Dx: F43.12 - Post-traumatic stress disorder, chronic Additional Diagnosis Notes: - The member confirmed PTSD secondary to his experiences in [place] while serving the [employer] - Current treatment: Alprazolam - His symptoms are well controlled - Plan follow up with PCP for management SCREENING - Fall Risk Have you fallen in the past year?: No Do you feel unsteady when standing or walking?: No SCREENING - DME & Home Health Does the patient use any durable medical equpiment?: No Does the patient use home health, physical therapy or detention services?: No New orders, referrals, or any other assistance with DME or home health needed at this time?: No ⭐SCREENING: COLORECTAL CANCER Has the member had a recent colon cancer screening?: Standard FIT (i.e. [place]) or FOBT test this year Result of test: Normal DISCUSSED: Advised the patient to follow up with their provider should they have any questions about their screen. GENERAL REVIEW OF SYSTEMS Chest Pain or Pressure: No Shortness of Breath at Rest or with Exertion: No Palpitations: No Balance Problems: No Review of systems negative unless otherwise indicated above: Yes RENAL - Chronic Kidney Disease Does patient carry a diagnosis of chronic kidney disease?: Yes Chronically dependent upon renal dialysis?: No Dx: N18.2 - Chronic kidney disease, stage 2 (mild) Notes for N18.2: - The member with CKD stage 2 - Currently not on medicinal intervention - Diagnostics: Last eGFR 79 ML/MIN/1.73 02/07/2024 - Counselling: maintain BP control <140/90,blood sugar control AIC, lipid control, and to avoid nephrotoxic drugs(NSAIDS) - Follow up with PCP/nephrology COMMON DIAGNOSES The patient has a diagnosis of hyperlipidemia: Yes The patient has a diagnosis of hypertension: Yes Statin status: Not on a statin regimen Dx: E78.5 - Hyperlipidemia, unspecified Notes for E78.5: - The member has maintained control with diet and exercise. - Last panel 02/03/2024: Total cholesterol = 150 LDL= 104 HDL= 31 Triglycerides= 77 - Reinforced lifestyle modifications - Consume a diet low in fat/cholesterol , avoiding fried/greasy foods. Good choices to include fruits, veggies, whole grains, nuts, beans and fat free options to reduce cholesterol and/or maintain lipids at goal - Follow up with PCP for routine monitoring In addition to hypertension, the patient has the following condition(s): CKD Stage 1-4 Dx: I12.9 - Hypertensive chronic kidney disease with stage 1 through stage 4 chronic kidney disease, or unspecified chronic kidney disease Notes for I12.9: - He is currently not on BP medication - He admits his BP is okay unless he feels anxious or gets mad. He maintains his mood well with Alprazolam and keeps busy outside - Counseled on low sodium diet and regular physical activity as tolerated - Goal is to keep BP < 140/90 ; Notify PCP for consistently elevated readings > 140/90 - Continue current regimen along with continued follow up with PCP Dx: B18.2 - Chronic viral hepatitis C Additional Diagnosis Notes: - The member confirms Hepatitis - Latest AST/ALT on record 02/07/2024 AST 74 IU/L and ALT 72 IU/L - He remains asymptomatic - Plan he will make appointment to see PCP Dx: G89.4 - Chronic pain syndrome Additional Diagnosis Notes: - He confirms pain management doctor following for chronic pain (neck and back) - Current treatment: Hydrocodone - Pain controlled by current plan ADDITIONAL DIAGNOSES Dx: Z12.11 - Encounter for screening for malignant neoplasm of colon Additional Diagnosis Notes: - The member is due for FIT test - He has no contraindications to completing FIT test - He is agreeable to complete test. - FIT ordered 2024 APPOINTMENT CPT CODE Please indicate how this visit was conducted: Video Please select the video platform used during the visit: [employer] Video Room Please record the total amount of time you spent on this patient visit- Total time includes time spent on preparation, speaking with the patient, documentation, and post-visit coordination of care - This is limited to time spent ON THE DATE OF SERVICE (e.g. does not include time spent on days prior to or after the date of service) 40 or more minutes Susanna Dodge [facility] 2024-02-13 16:00:00 ASSESSMENT SUMMARY ALYCIA DRISCOLL is a 69 year old man seen today by [facility] for a [facility] Visit. Visit PurposeThese visits are scheduled to augment PCPs to close care and documentation gaps, reconcile medications, help patients make full use of their [facility] benefits and educate patients about their conditions. This visit DOES NOT replace the your Annual Medicare Visit with the patient. The member was encouraged to schedule an AWV with their PCP to review our visit summary & recommendations. See below for teaching and instruction given regarding specific diagnoses. Member verbalized understanding to all. Members Preferred Language [place]ian Patient Currently Located in their home state of [place], YES DIAGNOSIS MYJJLOXI76.210 - Nicotine dependence, cigarettes, khtgdvsqzsulmJ75.5 - Hyperlipidemia, gyzrpkbinoiC70.03 - KotvtjgnacuJ68.24 - Body mass index [BMI] 24.0-24.9, tkxuvO84.148 - Patient's other noncompliance with medication regimen for other eujcweH60.11 - Encounter for screening for malignant neoplasm of colon PATIENT INTAKE Has the patient received an influenza vaccine this flu season? No DISCUSSED: Educated the patient on the risks and benefits of the influenza vaccine MEDICATION RECONCILIATION Did you review the patient's prescription and non-prescription drugs, vitamins, herbal remedies, and other supplements, AND is the accompanying medication list documented in the medical record?: Yes GENERAL ASSESSMENT Feet: 6 Inches: 2 Pounds: 191 Patient BMI: 24.52 Dx: Z68.24 - Body mass index [BMI] 24.0-24.9, adult Notes for Z68.24: BMI 24.52 within normal limits In general, would you say your quality of life is: Very good Do you exercise regularly?: Yes SUBSTANCE USE - Smoking History History of cigarette use: Yes Cigarette smoking status: Current Smoker Packs / day: 1 Duration (years): 30 DISCUSSED: Counseling on smoking cessation, pharmacotherapy, and spirometry testing was provided Dx: F17.210 - Nicotine dependence, cigarettes, uncomplicated Notes for F17.210: - Member is a current smoker - Member smokes 1 packs per day over 30 years - Discussed smoking cessation with member - Nicotine dependence managed by PCP SCREENING - Fall Risk Have you fallen in the past year?: No Do you feel unsteady when standing or walking?: No SCREENING - DME & Home Health Does the patient use any durable medical equpiment?: No Does the patient use home health, physical therapy or detention services?: No New orders, referrals, or any other assistance with DME or home health needed at this time?: No ⭐SCREENING: COLORECTAL CANCER COLORECTAL STATUS: NO KNOWN CA Has the member had a recent colon cancer screening?: No Appropriate Screening Do you have a plan to get screened?: NO CRC SCREENING SUPPORT REQUESTED: Ordering In-Home Fit Kit Would the patient like to complete a FIT test?: Yes GENERAL REVIEW OF SYSTEMS Chest Pain or Pressure: No Shortness of Breath at Rest or with Exertion: No Lower Extremity Edema: No Palpitations: No Cough: No Review of systems negative unless otherwise indicated above Review of systems negative unless otherwise indicated above: Yes RHEUMATOID ARTHRITIS Prescribed a disease-modifying antirheumatic drug (DMARD)?: No COMMON DIAGNOSES The patient has a diagnosis of hyperlipidemia: Yes The patient has a diagnosis of prediabetes: Yes Statin status: Not on a statin regimen Dx: E78.5 - Hyperlipidemia, unspecified Notes for E78.5: - Member currently not on medicinal intervention - Latest panel on 02/03/2024: Total cholesterol = 150 LDL= 104 HDL= 31 Triglycerides= 77 - Reinforced lifestyle modifications - Consume a diet low in fat/cholesterol , avoiding fried/greasy foods. Good choices to include fruits, veggies, whole grains, nuts, beans and fat free options to reduce cholesterol and/or maintain lipids at goal - Follow up with PCP for routine monitoring Dx: R73.03 - Prediabetes Notes for R73.03: - Prediabetes -Labs reviewed, most recent A1c: 5.9% on 02/07/2024 - The member advised to limit sugar intake, regular physical exercise as tolerated, maintain healthy weight - Plan follow up with PCP for monitoring ADDITIONAL DIAGNOSES Dx: Z91.148 - Patient's other noncompliance with medication regimen for other reason Additional Diagnosis Notes: The member admits to not taking recent new scripts to include Trazadone, Divalproex, Haloperidol. He believes that these medication make him feel sluggish. He was advised that these medications are to help stabilize his moods and that he should follow up with his mental health provider Kathy Patrick APRN that he was not taking new scripts consistently secondary to sedative effects. Dx: Z12.11 - Encounter for screening for malignant neoplasm of colon Additional Diagnosis Notes: he member has not had colon screening this year. He has no contraindication for FIT test. He is agreeable to complete the test. FIT test ordered. ADDITIONAL MEDICAL HISTORY Condition: Schizophrenia Condition Stability: Stable Medication Adherence: Taking medication differently than prescribed Medication Regimen Recommendations: Changes recommended Follows with (provider): KATHY PATRICK APRN Additional Notes-: He had recent scripts sent for Divalproex, Haloperidol, Trazadone. He admits to not taking medication secondary to sedating effects. He was advised to follow-up with his mental health provider about his medication regimen. APPOINTMENT CPT CODE* Please indicate how this visit was conducted: Video Please record the total amount of time you spent on this patient visit- Total time includes time spent on preparation, speaking with the patient, documentation, and post-visit coordination of care - This is limited to time spent ON THE DATE OF SERVICE (e.g. does not include time spent on days prior to or after the date of service) 15 - 29 minutes Susanna Dodge [facility] 2022-12-14 13:40:34 Formatting of this n ote [...] in no apparent distress. Hilario Dunaway RN [facility] 2022-12-14 10:22:05 Formatting of this n ote might be different from the original. Last night around midnight pt was took his dog outside. Shoelaces were long and he tripped over them. Hit left side ribs on concrete corner. Terra Woodard RN [facility]
--- NOTE | 2024-09-30 14:07 | RAD REPORT ---
EXAMINATION: CT LUMBAR SPINE WITHOUT CONTRAST CLINICAL INDICATION: Male, 69 years old. PAIN TECHNIQUE: Axial CT images were obtained through the lumbar spine in soft tissue and bone windows wit hout intravenous contrast. Coronal and Sagittal reformatted images were created from the data set. One or more of the following dose reduction techniques were used: Automated exposure control, adjustm ent of the mA and/ or kV according to patient size, and/or iterative reconstruction. Unless otherwise specified, incidental findings do not require dedicated imaging follow-up. COMPARISON: No prior exam. FINDINGS: For purposes of this dictation, it is assumed that there are 5 non rib-bearing lumbar type vertebrae, and the most caudal fully segmented lumbar vertebra is labeled L5. ALIGNMENT: The lumbar spine demonstrates normal alignment without scoliosis or spondylolisthesis. BONES: Mildly displaced acute appearing fracture at the tip of the right L1 transverse process. Verte bral body heights are preserved. No aggressive osseous lesions. Mild to moderate degenerative changes with endplate spurring and few Schmorl's node formation. Moderate bilateral facet arthropathy at L5-S1 without significant subluxation. Mild facet degenerative changes throughout the remainder of the spine. DISCS: Intervertebral disc space heights are maintained. LEVELS: Mild multilevel posterior disc bulges most notably at L3-4, L4-5 and L5-S1, contributing to m ild degrees of neural foraminal narrowing most notably at L3-4.. No significant central canal stenosis. No visualized abnormality within the spinal canal. SOFT TISSUE: No soft tissue abnormalities. IMPRESSION: Mildly displaced acute right L1 transverse process fracture. Multilevel mild degenerative changes as above, contributing to mild degrees of neural foraminal narro wing most notably at L3-4 bilaterally.
--- NOTE | 2024-09-30 14:09 | RAD REPORT ---
EXAMINATION: CT PELVIS WITHOUT CONTRAST CLINICAL INDICATION: Male, 69 years old.[facility] MAIN blunt trauma, pain Bed Name: 11 TECHNIQUE: CT pelvis was performed, without IV contrast, as per department protocol. Axial, sagittal and coronal reconstructions were obtained. One or more of the following dose reduction techniques were used: Automated exposure control, adjustment of the mA and/or kV according to patient size, and/ or iterative reconstruction. Unless otherwise specified, incidental findings do not require dedicated imaging follow-up. COMPARISON: CT abdomen and pelvis 02/01/2024 FINDINGS: The lack of intravenous contrast limits the sensitivity of this exam for evaluation of solid visceral organs, vascular structures, and retroperitoneum. MUSCULOSKELETAL: No acute or suspicious osseous abnormality. URINARY SYSTEM: No abnormalities of the included kidneys and ureters. Urinary bladder is unremarkable . GASTROINTESTINAL TRACT: Included small bowel is normal in caliber. No wall thickening or bowel inflam matory changes. Mild distal colonic diverticulosis without evidence of acute diverticulitis. Appendix is unremarkable. LYMPH NODES: No lymphadenopathy. ABDOMINAL AORTA AND OTHER VESSELS: Normal caliber aorta and IVC. ADDITIONAL FINDINGS: Mild prostatomegaly with calcifications.. IMPRESSION: No acute abnormalities of the bony pelvis. Evaluation limited by lack of IV contrast.
[2024-09-30] MEDS ORDERED: KETOROLAC 30 MG/ML INJ ONE (14:16)
--- NOTE | 2024-09-30 14:32 | EDPHYS ---
Physician Documentation [facility] Name: Zachary Driscoll Age: 69 yrs Sex: Male : 1955 Arrival Date: 09/30/2024 Time: 12:31 Bed 11 Private MD: ED Physician Hiram Ricardo HPI: 09/30 12:52 This 69 yrs old Male presents to ER via Ambulatory with complaints of Low Back Pain. rn 12:52 The patient presents with pain that is acute, and contusion, and an injury. The rn symptoms are located in the low back. Onset: The symptoms/episode began/occurred 3 day(s) ago. Patient reports walking backwards with wheelbarrow full of sand, tripped and fell onto lower back. Has had pain in lumbar spine and region since then. No bowel or bladder issues. No weakness. Is ambulatory. Patient reports has taken hydrocodone and Percocet before without trouble.. Historical: - Allergies: 12:42 Codeine; ll1 - PMHx: 12:42 Hepatitis C (Rotator cuff repair); PTSD (Rotator cuff repair); ll1 - PSHx: 12:42 Rotator cuff repair; ll1 - Immunization history:: Adult Immunizations up to date. - Infectious Disease History:: Denies. - Social history:: Smoking status: Patient reports the use of cigarette tobacco products, smokes one-half pack cigarettes per day. - Family history:: not pertinent. - Hospitalizations: : No recent hospitalization is reported. ROS: 12:52 Constitutional: Negative for fever, chills, and weight loss, Neck: Negative for injury, rn pain, and swelling, Cardiovascular: Negative for chest pain, palpitations, and edema, Respiratory: Negative for shortness of breath, cough, wheezing, and pleuritic chest pain, Abdomen/GI: Negative for abdominal pain, nausea, vomiting, diarrhea, and constipation, Back: Positive for back injury and pain MS/Extremity: Negative for injury and deformity, Neuro: Negative for headache, weakness, numbness, tingling, and seizure, Exam: 12:52 Constitutional: This is a well developed, well nourished patient who is awake, alert, element burner, appears uncomfortable, slow antalgic gait Cardiovascular: Regular rate and rhythm. No pulse deficits. Abdomen/GI: Soft, nontender Back: Perilumbar tenderness with ecchymosis. No step-off MS/ Extremity: Pulses equal, no cyanosis. Neurovascular intact. Full, normal range of motion. Equal circumference. Neuro: Awake and alert, GCS 15, oriented to person, place, time, and situation. Cranial nerves II-XII grossly intact. Motor strength 5/5 in all extremities. Sensory grossly intact. Cerebellar exam normal. Normal gait. Vital Signs: 12:42 BP 118 / 80; Pulse 90; Resp 18; Temp 97.7; Pulse Ox 98% on R/A; Weight 91.63 kg; Height ll1 6 ft. 2 in. ; Pain 10/10; 15:08 BP 121 / 84; Pulse 84; Resp 18; Pulse Ox 100% ; mb9 12:42 Body Mass Index 25.93 (91.63 kg, 187.96 cm) ll1 12:42 Pain Scale: Adult ll1 MDM: 12:36 Medical Screening Exam initiated rn 14:30 Differential diagnosis: strain, fracture. Data reviewed: vital signs, nurses notes, rn radiologic studies, CT scan, and as a result, I will discharge patient. Counseling: I had a detailed discussion with the patient and/or guardian regarding the historical points, exam findings, and any diagnostic results supporting the discharge/admit diagnosis, radiology results, the need for outpatient follow up, to return to the emergency department if symptoms worsen or persist or if there are any questions or concerns that arise at home. Response to treatment: the patient's symptoms have mildly improved after treatment, and as a result, I will discharge patient. Special discussion: I discussed with the patient/guardian in detail that at this point there is no indication for admission to the hospital. It is understood, however, that if the symptoms persist or worsen the patient needs to return immediately for re-evaluation. ED course: L1 transverse process fracture on CT imaging. Nonoperative fracture. Will discharge home with as needed pain medication and return precautions.. 05 12:41 Order name: CT Lumbar Spine Wo Con; Complete Time: 14:16 rn 09/30 12:41 Order name: CT Pelvis wo Cont; Complete Time: 14:16 rn Administered Medications: 12:55 Drug: [place] PO 10 mg-325 mg 1 tabs PO once Route: PO; mb9 13:26 Follow up: Response: No adverse reaction mb9 14:25 Drug: Ketorolac IM 15 mg IM once Route: IM; Site: right deltoid; mb9 15:09 Follow up: Response: No adverse reaction mb9 Disposition Summary: 09/30/24 14:32 Discharge Ordered Notes: Location: Home rn Problem: new rn Symptoms: have improved rn Condition: Stable rn Diagnosis - Fracture of first lumbar vertebra - transverse process fracture rn Followup: rn - With: Private Physician - When: As needed - Reason: Recheck today's complaints, Re-evaluation by your physician Discharge Instructions: - Discharge Summary Sheet rn - Transverse Process Fracture rn Forms: - Medication Reconciliation Form rn - Antibiotic pattern room attendant - Prescription Opioid Use rn - Patient Portal Instructions rn - Leadership Thank You Letter rn Prescriptions: - Cyclobenzaprine 10 mg Oral Tablet - take 1 tablet ORAL route every 8 hours As needed; 30 tablet; Refills: 0, rn Product Selection Permitted - Tramadol 50 mg Oral tablet - take 1 tablet ORAL route every 8 hours As needed as needed; 15 tablet; Refills: rn 0, Product Selection Permitted Signatures: Dispatcher [employer] EDHiram Morris MD MD rn Lewis, Lynsay RN RN ll1 Cristina Keene RN RN mb9 Corrections: (The following items were deleted from the chart) 12:42 12:42 Pelvis Wo [id number] ordered. EDMS EDMS
--- NOTE | 2024-09-30 14:32 | ER ---
Nurse's Notes [facility] Name: Zachary Driscoll Age: 69 yrs Sex: Male : 1955 Arrival Date: 09/30/2024 Time: 12:31 Bed 11 Private MD: Diagnosis: Fracture of first lumbar vertebra-transverse process fracture Presentation: 09/30 12:42 Chief complaint: Patient states: Tripped 3 days ago while using a wheelbarrow. Fell ll1 onto back, and his back hit a rock. R lower back pain since. Coronavirus screen: Client denies travel out of the [place] in the last 14 days. At this time, the client does not indicate any symptoms associated with coronavirus-19. Ebola Screen: Patient denies travel to an Ebola-affected area in the 21 days before illness onset. Initial Sepsis Screen: Does the patient meet any 2 criteria? No. Patient's initial sepsis screen is negative. Does the patient have a suspected source of infection? No. Patient's initial sepsis screen is negative. Risk Assessment: Do you want to hurt yourself or someone else? Patient reports no desire to harm self or others. Onset of symptoms was September 28, 2024. 12:42 Method Of Arrival: Ambulatory ll1 12:42 Acuity: VERNON 4 ll1 Triage Assessment: 12:44 General: Appears uncomfortable, Behavior is calm, cooperative, appropriate for age. ll1 Pain: Complains of pain in R lower back. Musculoskeletal: Reports pain in R lower back. Historical: - Allergies: 12:42 Codeine; ll1 - PMHx: 12:42 Hepatitis C (Rotator cuff repair); PTSD (Rotator cuff repair); ll1 - PSHx: 12:42 Rotator cuff repair; ll1 - Immunization history:: Adult Immunizations up to date. - Infectious Disease History:: Denies. - Social history:: Smoking status: Patient reports the use of cigarette tobacco products, smokes one-half pack cigarettes per day. - Family history:: not pertinent. - Hospitalizations: : No recent hospitalization is reported. Screenin:56 [facility] ED Fall Risk Assessment (Adult) History of falling in the last 3 months, mb9 including since admission Yes- single mechanical fall (1 pt) Confusion or Disorientation No (0 pts) Intoxicated or Sedated No (0 pts) Impaired Gait No (0 pts) Mobility Assist Device Used No (0 pt) Altered Elimination No (0 pt) Score/Fall Risk Level 0 - 2 = Low Risk Oriented to surroundings, Maintained a safe environment, Educated pt \T\ family on fall prevention, incl call for assistance when getting out of bed. Abuse screen: Denies threats or abuse. Nutritional screening: No deficits noted. Tuberculosis screening: No symptoms or risk factors identified. Assessment: 12:56 General: Appears uncomfortable, Behavior is cooperative. Pain: Complains of pain in mb9 back Pain radiates to buttocks Pain currently is 10 out of 10 on a pain scale. Quality of pain is described as aching, Is continuous. Neuro: Elliott Agitation-Sedation Scale (RASS): 0 - Alert and Calm Level of Consciousness is awake, alert, obeys commands, Oriented to person, place, time, situation, Appropriate for age. Cardiovascular: Patient's skin is warm and dry. Respiratory: Airway is patent. GI: No signs and/or symptoms were reported involving the gastrointestinal system. : No signs and/or symptoms were reported regarding the genitourinary system. EENT: No signs and/or symptoms were reported regarding the EENT system. Derm: Bruising that is dark purple, on back. Musculoskeletal: Range of motion: intact in all extremities. 14:22 Reassessment: Patient and/or family updated on plan of care and expected duration. Pain mb9 level reassessed. Patient is alert, oriented x 3, equal unlabored respirations, skin warm/dry/pink. Patient states symptoms have not improved. Vital Signs: 12:42 BP 118 / 80; Pulse 90; Resp 18; Temp 97.7; Pulse Ox 98% on R/A; Weight 91.63 kg; Height ll1 6 ft. 2 in. ; Pain 10/10; 15:08 BP 121 / 84; Pulse 84; Resp 18; Pulse Ox 100% ; mb9 12:42 Body Mass Index 25.93 (91.63 kg, 187.96 cm) ll1 12:42 Pain Scale: Adult ll1 ED Course: 12:34 Patient arrived in ED. al6 12:35 Hiram Ricardo MD is Attending Physician. rn 12:41 Arm band placed on Patient placed in an exam room, on a stretcher. ll1 12:44 Triage completed. ll1 12:52 Cristina Keene, RN is Primary Nurse. mb9 12:57 Bed in low position. Call light in reach. Side rails up X 1. Provided Education on: mb9 press call light if needing anything. Client placed on continuous cardiac and pulse oximetry monitoring. NIBP monitoring applied. 13:25 CT Lumbar Spine Wo Con In Process Unspecified. EDMS 13:25 CT Pelvis wo Cont In Process Unspecified. EDMS 15:08 No provider procedures requiring assistance completed. Patient did not have IV access mb9 during this emergency room visit. Administered Medications: 12:55 Drug: [place] PO 10 mg-325 mg 1 tabs PO once Route: PO; mb9 13:26 Follow up: Response: No adverse reaction mb9 14:25 Drug: Ketorolac IM 15 mg IM once Route: IM; Site: right deltoid; mb9 15:09 Follow up: Response: No adverse reaction mb9 Medication: 12:57 VIS not applicable for this client. mb9 Outcome: 14:32 Discharge ordered by . rn 15:07 Discharged to home ambulatory, mb9 15:07 Condition: stable 15:07 Discharge instructions given to patient, Instructed on discharge instructions, follow up and referral plans. Demonstrated understanding of instructions, follow-up care, medications, Prescriptions given X 2, 15:09 Patient left the ED. mb9 Signatures: Dispatcher [employer] Hiram Fam MD MD rn Lewis, Lynsay RN RN ll1 Cristina Keene, RN RN mb9 Carla Kwon al6
[2024-09-30 18:32] VITALS: TEMP 97.7
[2024-09-30 18:33] VITALS: BP 121/84; O2SAT 100
== END 2024-09-30 15:09 | disposition home or self-care (01) ==
LOC: ER 12:31
DX: S32.019A Unspecified fracture of first lumbar vertebra, initial encounter for closed fracture (principal); W18.09XA Striking against other object with subsequent fall, initial encounter; F17.210 Nicotine dependence, cigarettes, uncomplicated
CPT/HCPCS: 72131; 72192; 96372; 99284